=== PATIENT | male | born 1935 | race Caucasian/White ===

== ENCOUNTER 2018-02-25 15:52 | Emergency (ER) | payer OTHER ==
[~2018-02-25] VITALS: Ht 170.2 cm; Wt 85.5 kg
[~2018-02-25 15:52] MED LIST: ADVIN10050 INH; AGG PO; ESOM20CA PO; INSU70IN2 SC; IPRA17AE2 INH; LORA10CA2 PO; METO25TA3 PO; MONT1TAB3 PO; NSNN50 NAE; OXYC-409 PO; SIMV10TA2 PO; THL24/300 PO; XRL10 PO
[2018-02-25 16:01] VITALS: TEMP 36.5; O2SAT 94; Ht 170.2 cm; Wt 85.5 kg
--- NOTE | 2018-02-25 16:24 | EMERGENCY ROOM VISIT NOTE ---
History Report prepared by Malia: Sera Lemos Under the Supervision of: Dr. Artie Britt M.D. First contact with patient: 16:10 Chief Complaint: FALL Stated Complaint: L SHOULDER PAIN History of Present Illness The patient is a 83 year old male who presents to the Emergency Room with complaints of left shoulder pain due to a fall [place] [employer]. He states he fell about 10 feet down a small [place] in the [place]. He reports hitting his head and and is unsure if there was loss of consciousness but notes that he hit his shoulder. Movement of his shoulder is a worsening factor. He denies any neck pain. 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 A total of ten systems were reviewed and were otherwise negative. Family History No pertinent family history Social History Smoking Status: Former Smoker Drug Use: none Housing Status: lives with family Current/Historical Medications Scheduled Dipyridamole/Aspirin (Aggrenox 25-200 mg), 1 CAP PO Q12 Doxycycline Monohydrate (Monodox), 100 MG PO BID Esomeprazole Magnesium (Nexium), 20 MG PO DAILY Fluticasone Prop/Salmeterol (Advair Diskus 100-50 Mcg/Dose), 1 PUFF INH BID Insulin Isophan/Regular (Novolin 70/30), 40 UNITS SC QAM Insulin Isophan/Regular (Novolin 70/30), 25 UNITS SC QPM Ipratropium [place] Hfa (Atrovent Hfa), 2 PUFFS INH QID Loratadine (Claritin), 10 MG PO DAILY Metoprolol Succ (Toprol Xl) (Toprol-Xl), 25 MG PO BID Mometasone Furoate (Nasal) (Nasonex), 2 SPRAYS JOSELINE DAILY Montelukast Sodium (Singulair), 10 MG PO DAILY Oxycodone Hcl (Oxycontin), 10 MG PO Q12 Rivaroxaban (Xarelto), 10 MG PO DAILY@0700 Simvastatin (Zocor), 10 MG PO QPM Theophylline (Will-24), 300 MG PO BID Allergies Coded Allergies: No Known Allergies (Unverified , 12/13/14) Physical Exam Vital Signs Date Time Temp Pulse Resp B/P (MAP) Pulse Ox O2 Delivery O2 Flow Rate FiO2 02/25/18 19:12 65 16 119/80 02/25/18 16:01 36.5 64 20 145/85 94 Room Air Physical Exam Physical Exam GENERAL: He is oriented to person, place, and time. he appears well-developed and well-nourished. he does not appear distressed. ____ HENT: Exam performed. Head: Normocephalic and atraumatic. Right Ear: External ear normal. No mastoid tenderness. Left Ear: External ear normal. No mastoid tenderness. Mouth/Throat: The oropharynx is clear and moist. No trismus in the jaw. No dental abscesses or uvula swelling. No oropharyngeal exudate or tonsillar abscesses. ____ EYES: Conjunctivae and EOM are normal. Pupils are equal, round, and reactive to light. Right eye exhibits no discharge. Left eye exhibits no discharge. No scleral icterus. ____ NECK: Normal range of motion. Neck supple. No JVD present. No spinous process tenderness present. No carotid bruit present. No rigidity. No tracheal deviation and normal range of motion present. No Brudzinski's sign and no Kernig 's sign noted. ____ CV: Normal rate, regular rhythm, normal heart sounds and intact distal pulses. There is no peripheral edema. Palpable radial pulses bue. ____ PULM/CHEST: Effort normal and breath sounds normal. No respiratory distress. No stridor. he has no wheezes. he has no rales. Chest Wall: He exhibits no tenderness. ____ ABD: The abdomen is soft. Bowel sounds are normal. He has no distension. No mass is present. There is no tenderness. There is no rebound, no guarding, no Willis's sign and no tenderness at McBurney's point. Rovsig negative MUSC/SKEL: Normal range of motion. There is no peripheral edema, tenderness or deformity. He has pain with active motion of his left shoulder and pain on palpation of the left shoulder. No pain on palpation of the left humerus or left clavicle. LYMPH: No cervical adenopathy. ____ NEURO: He is alert and oriented to person, place, and time. He has normal strength. No cranial nerve deficit or sensory deficit. Coordination and gait normal. GCS eye subscore is 4. GCS verbal subscore is 5. GCS motor subscore is 6. Cerebellar tests wnl. ____ SKIN: Skin is warm and dry. He is not diaphoretic. ____ PSYCH: He has a normal mood and affect. His behavior is normal. Judgment and thought content normal. ____ Medical Decision & Procedures ER Provider Diagnostic Interpretation: Radiology results as stated below per my review and radiologist interpretation: LEFT SHOULDER 4 VIEWS; LEFT HUMERUS 2 VIEWS CLINICAL HISTORY: Fall. FINDINGS: 4 views of the left shoulder with AP and lateral views of the left humerus are obtained. No prior studies are available for comparison at the time of dictation. The skeletal structures are osteopenic. There is no radiographic evidence of fracture or dislocation in the left shoulder. There is no radiographic evidence of left humeral fracture. Mild productive degenerative change is noted at the acromioclavicular joint. The glenohumeral articulation is preserved. Calcific tendinopathy is suggested. The elbow joint is grossly normal as imaged. The overlying soft tissues are normal in appearance. Interstitial thickening is noted in the partially visualized left lung. The heart appears enlarged. There is atherosclerotic calcification of the left carotid bulb. IMPRESSION: 1. Osteopenia with no radiographic evidence of fracture or dislocation in the left shoulder. 2. There is no radiographic evidence of left humeral fracture. 3. Calcific tendinopathy is suggested in the left shoulder. Electronically signed by: Shamir Hogan M.D. 02/25/2018 6:08 PM Dictated Date/Time: 02/25/2018 6:06 PM SINGLE VIEW PELVIS CLINICAL HISTORY: Fall. FINDINGS: An AP pelvic radiograph is obtained. No prior studies are available for comparison at the time of dictation. The skeletal structures are osteopenic. There is no radiographic evidence of fracture involving the hips or bony pelvis. Mild arthritic change and joint space narrowing is seen in the hips. Sclerotic degenerative change is present in the sacroiliac joints and pubic symphysis. Lumbosacral spondylosis is partially visualized. Numerous phleboliths are seen in the pelvis. Suture material and a surgical clip are present in the right lower quadrant. No bowel obstruction is seen. The overlying soft tissues are within normal limits. IMPRESSION: Osteopenia and degenerative change as above. There is no radiographic evidence of acute fracture involving the hips or bony pelvis. Electronically signed by: Shamir Hogan M.D. 02/25/2018 6:09 PM Dictated Date/Time: 02/25/2018 6:08 PM LEFT SHOULDER 4 VIEWS; LEFT HUMERUS 2 VIEWS CLINICAL HISTORY: Fall. FINDINGS: 4 views of the left shoulder with AP and lateral views of the left humerus are obtained. No prior studies are available for comparison at the time of dictation. The skeletal structures are osteopenic. There is no radiographic evidence of fracture or dislocation in the left shoulder. There is no radiographic evidence of left humeral fracture. Mild productive degenerative change is noted at the acromioclavicular joint. The glenohumeral articulation is preserved. Calcific tendinopathy is suggested. The elbow joint is grossly normal as imaged. The overlying soft tissues are normal in appearance. Interstitial thickening is noted in the partially visualized left lung. The heart appears enlarged. There is atherosclerotic calcification of the left carotid bulb. IMPRESSION: 1. Osteopenia with no radiographic evidence of fracture or dislocation in the left shoulder. 2. There is no radiographic evidence of left humeral fracture. 3. Calcific tendinopathy is suggested in the left shoulder. Electronically signed by: Shamir Hogan M.D. 02/25/2018 6:08 PM Dictated Date/Time: 02/25/2018 6:06 PM HEAD WITHOUT CONTRAST (CT) CLINICAL HISTORY: 83 years-old Male presenting with fall possible LOC. TECHNIQUE: Multidetector CT imaging of the head was performed without the use of intravenous contrast. IV contrast: None. A dose lowering technique was used consistent with the principles of ALARA (as low as reasonably achievable). COMPARISON: None. CT DOSE (mGy.cm): The estimated cumulative dose is 950.77. 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 Proportional ventricular and sulcal prominence, likely age-related parenchymal volume loss. Periventricular and subcortical white matter hypoattenuation, nonspecific but likely indicative of chronic small vessel ischemic change. No mass effect or midline shift. No hemorrhage or acute territorial infarct. No extra-axial fluid collection. Paranasal sinuses and mastoid air cells clear. Calvarium intact. IMPRESSION: 1. Chronic small vessel ischemic change. No acute intracranial abnormality. Electronically signed by: Camilo Rogers M.D. 02/25/2018 4:48 PM Dictated Date/Time: 02/25/2018 4:45 PM CHEST 2 VIEWS ROUTINE CLINICAL HISTORY: 83 years-old Male presenting with fall. TECHNIQUE: PA and lateral views of the chest were obtained. COMPARISON: None. FINDINGS: Atherosclerosis of aortic arch. Cardiac silhouette enlarged. Diffuse reticular and hazy opacities in the left mid to lower lung. Bibasilar reticulation noted. Nodular opacities peripherally in the right mid lung. No large effusion or pneumothorax. Lungs and pleural spaces clear. Osseous structures normal. Upper abdomen normal. IMPRESSION: 1. Findings suspicious for left lung infiltrate superimposed on chronic lung disease. Further evaluation with chest CT to be considered. Electronically signed by: Camilo Rogers M.D. 02/25/2018 6:11 PM Dictated Date/Time: 02/25/2018 6:[address] SCAN OF THE CERVICAL SPINE CLINICAL HISTORY: Fall. COMPARISON STUDY: No priors. TECHNIQUE: CT scan of the cervical spine is performed from the skull base to the upper thoracic spine. Images are reviewed in the axial, sagittal, and coronal planes. IV contrast was not administered for this examination. A dose lowering technique was utilized adhering to the principles of ALARA. CT DOSE: 950.77 mGy.cm FINDINGS: Skeletal structures: The skeletal structures are osteopenic. There is no evidence of fracture or subluxation involving the cervical spine. Vertebral body height is maintained. Minimal anterolisthesis is seen at C6-C7. Alignment is otherwise preserved. There is straightening of the cervical lordosis. The odontoid process and lateral masses are intact. Bulky flowing anterior osteophytes are seen throughout the cervical spine. The atlantoaxial articulation is preserved noting advanced productive degenerative change. The spinous processes appear intact. There is advanced multilevel cervical spondylosis. Uncovertebral and facet arthropathy contribute to neural foraminal stenosis at most levels. A large hemangioma is noted in the body of T2. Intervertebral discs: Advanced disc space narrowing seen at all levels between C3-C4 and C6-C7. Central canal: Large posterior discussed by complex is from C3 -C4 through C6-C7 likely contribute to multilevel acquired compromise of the central canal. Soft tissues: The prevertebral and paraspinous soft tissues are within normal limits. There is atherosclerotic calcification of the carotid bulbs. Calvarium: The visualized calvarium at the skull base appears intact. Brain parenchyma: Partially visualized brain parenchyma the skull base is within normal limits noting age-related involutional change. Sinuses and mastoids: The visualized paranasal sinuses are clear. The mastoid air cells are well pneumatized. Lung apices: Emphysematous change is noted at the lung apices. Partially imaged apical lung parenchyma is otherwise grossly clear. IMPRESSION: 1. There is no evidence of fracture or subluxation involving the cervical spine. 2. Osteopenia with advanced multilevel cervical spondylosis as above. Electronically signed by: Shamir Hogan M.D. 02/25/2018 4:50 PM Dictated Date/Time: 02/25/2018 4:46 PM Procedure Bedside FAST exam performed with ultrasound. Views were obtained in the hepatorenal subxyphoid splenorenal and suprapubic windows. No free fluid in the abdomen. No pericardial tamponade. It was negative. ED Course 1614: The patient was evaluated in room A4. A complete history and physical exam was performed. 1814: I reevaluated the patient at this time. His vitals are stable and he reports his pain is better. Imaging shows no acute traumatic injury. Chest X- ray shows possible pneumonia. Fast exam negative. Patient does report that he was having cough for the last few days, no fevers, no hemoptysis, no difficulty breathing. He was made aware of his chest x-ray findings of acute possible infiltrate, given his symptoms of cough will treat empirically with antibiotics. DISCHARGE - Plan of care discussed with patient and questions answered. The patient was given both verbal and printed discharge instructions. The patient verbalized understanding and ability to comply. The patient is to seek outpatient follow up as noted in the discharge instructions. The patient verbalized understanding and ability to comply. The patient is discharged in stable condition. The patient was instructed to return for worsening symptoms. Medical Decision vitals are stable and he reports his pain is better. Imaging shows no acute traumatic injury. Chest X-ray shows possible pneumonia. Fast exam negative. Patient does report that he was having cough for the last few days, no fevers, no hemoptysis, no difficulty breathing. He was made aware of his chest x-ray findings of acute possible infiltrate, given his symptoms of cough will treat empirically with antibiotics. DISCHARGE - Plan of care discussed with patient and questions answered. The patient was given both verbal and printed discharge instructions. The patient verbalized understanding and ability to comply. The patient is to seek outpatient follow up as noted in the discharge instructions. The patient verbalized understanding and ability to comply. The patient is discharged in stable condition. The patient was instructed to return for worsening symptoms. Medication Reconcilliation Current Medication List: was personally reviewed by me Blood Pressure Screening Patient's blood pressure: Elevated blood pressure Blood pressure disposition: Elevated BP felt to be situational Impression Primary Impression: Fall Additional Impression: Pneumonia Scribe Attestation The scribe's documentation has been prepared under my direction and personally reviewed by me in its entirety. I confirm that the note above accurately reflects all work, treatment, procedures, and medical decision making performed by me. The chart was completed utilizing [employer] Speech voice recognition software. Grammatical errors, random word insertions, pronoun errors, and incomplete sentences are an occasional consequence of this system due to software limitations, ambient noise, and hardware issues. Any formal questions or concerns about the content, text, or information contained within the body of this dictation should be directly addressed to the physician for clarification. Departure Information Dispostion Home / Self-Care Prescriptions Doxycycline Monohydrate (Monodox) 100 Mg Cap 100 MG PO BID for 10 Days, #20 CAP Prov: Artie Britt M.D. 02/25/18 Referrals Luca Lamas M.D. (PCP) Forms HOME CARE DOCUMENTATION FORM, IMPORTANT VISIT INFORMATION Patient Instructions My [facility] Problem Qualifiers Primary Impression: Fall Encounter type: initial encounter Qualified Codes: W19.XXXA - Unspecified fall, initial encounter Additional Impression: Pneumonia Pneumonia type: due to unspecified organism Laterality: unspecified laterality Lung location: unspecified part of lung Qualified Codes: J18.9 - Pneumonia, unspecified organism
--- NOTE | 2018-02-25 16:49 | DIAGNOSTIC IMAGING REPORT ---
HEAD WITHOUT CONTRAST (CT) CLINICAL HISTORY: 83 years-old Male presenting with fall possible LOC. TECHNIQUE: Multidetector CT imaging of the head was performed without the use of intravenous contrast. IV contrast: None. A dose lowering technique was used consistent with the principles of ALARA (as low as reasonably achievable). COMPARISON: None. CT DOSE (mGy.cm): The estimated cumulative dose is 950.77. 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 Proportional ventricular and sulcal prominence, likely age-related parenchymal volume loss. Periventricular and subcortical white matter hypoattenuation, nonspecific but likely indicative of chronic small vessel ischemic change. No mass effect or midline shift. No hemorrhage or acute territorial infarct. No extra-axial fluid collection. Paranasal sinuses and mastoid air cells clear. Calvarium intact. IMPRESSION: 1. Chronic small vessel ischemic change. No acute intracranial abnormality. Electronically signed by: Camilo Rogers M.D. 02/25/2018 4:48 PM Dictated Date/Time: 02/25/2018 4:45 PM
--- NOTE | 2018-02-25 16:52 | DIAGNOSTIC IMAGING REPORT ---
CT SCAN OF THE CERVICAL SPINE CLINICAL HISTORY: Fall. COMPARISON STUDY: No priors. TECHNIQUE: CT scan of the cervical spine is performed from the skull base to the upper thoracic spine. Images are reviewed in the axial, sagittal, and coronal planes. IV contrast was not administered for this examination. A dose lowering technique was utilized adhering to the principles of ALARA. CT DOSE: 950.77 mGy.cm FINDINGS: Skeletal structures: The skeletal structures are osteopenic. There is no evidence of fracture or subluxation involving the cervical spine. Vertebral body height is maintained. Minimal anterolisthesis is seen at C6-C7. Alignment is otherwise preserved. There is straightening of the cervical lordosis. The odontoid process and lateral masses are intact. Bulky flowing anterior osteophytes are seen throughout the cervical spine. The atlantoaxial articulation is preserved noting advanced productive degenerative change. The spinous processes appear intact. There is advanced multilevel cervical spondylosis. Uncovertebral and facet arthropathy contribute to neural foraminal stenosis at most levels. A large hemangioma is noted in the body of T2. Intervertebral discs: Advanced disc space narrowing seen at all levels between C3-C4 and C6-C7. Central canal: Large posterior discussed by complex is from C3 -C4 through C6-C7 likely contribute to multilevel acquired compromise of the central canal. Soft tissues: The prevertebral and paraspinous soft tissues are within normal limits. There is atherosclerotic calcification of the carotid bulbs. Calvarium: The visualized calvarium at the skull base appears intact. Brain parenchyma: Partially visualized brain parenchyma the skull base is within normal limits noting age-related involutional change. Sinuses and mastoids: The visualized paranasal sinuses are clear. The mastoid air cells are well pneumatized. Lung apices: Emphysematous change is noted at the lung apices. Partially imaged apical lung parenchyma is otherwise grossly clear. IMPRESSION: 1. There is no evidence of fracture or subluxation involving the cervical spine. 2. Osteopenia with advanced multilevel cervical spondylosis as above. Electronically signed by: Shamir Hogan M.D. 02/25/2018 4:50 PM Dictated Date/Time: 02/25/2018 4:46 PM
--- NOTE | 2018-02-25 18:09 | DIAGNOSTIC IMAGING REPORT ---
LEFT SHOULDER 4 VIEWS; LEFT HUMERUS 2 VIEWS CLINICAL HISTORY: Fall. FINDINGS: 4 views of the left shoulder with AP and lateral views of the left humerus are obtained. No prior studies are available for comparison at the time of dictation. The skeletal structures are osteopenic. There is no radiographic evidence of fracture or dislocation in the left shoulder. There is no radiographic evidence of left humeral fracture. Mild productive degenerative change is noted at the acromioclavicular joint. The glenohumeral articulation is preserved. Calcific tendinopathy is suggested. The elbow joint is grossly normal as imaged. The overlying soft tissues are normal in appearance. Interstitial thickening is noted in the partially visualized left lung. The heart appears enlarged. There is atherosclerotic calcification of the left carotid bulb. IMPRESSION: 1. Osteopenia with no radiographic evidence of fracture or dislocation in the left shoulder. 2. There is no radiographic evidence of left humeral fracture. 3. Calcific tendinopathy is suggested in the left shoulder. Electronically signed by: Shamir Hogan M.D. 02/25/2018 6:08 PM Dictated Date/Time: 02/25/2018 6:06 PM
--- NOTE | 2018-02-25 18:11 | DIAGNOSTIC IMAGING REPORT ---
SINGLE VIEW PELVIS CLINICAL HISTORY: Fall. FINDINGS: An AP pelvic radiograph is obtained. No prior studies are available for comparison at the time of dictation. The skeletal structures are osteopenic. There is no radiographic evidence of fracture involving the hips or bony pelvis. Mild arthritic change and joint space narrowing is seen in the hips. Sclerotic degenerative change is present in the sacroiliac joints and pubic symphysis. Lumbosacral spondylosis is partially visualized. Numerous phleboliths are seen in the pelvis. Suture material and a surgical clip are present in the right lower quadrant. No bowel obstruction is seen. The overlying soft tissues are within normal limits. IMPRESSION: Osteopenia and degenerative change as above. There is no radiographic evidence of acute fracture involving the hips or bony pelvis. Electronically signed by: Shamir Hogan M.D. 02/25/2018 6:09 PM Dictated Date/Time: 02/25/2018 6:08 PM
--- NOTE | 2018-02-25 18:12 | DIAGNOSTIC IMAGING REPORT ---
CHEST 2 VIEWS ROUTINE CLINICAL HISTORY: 83 years-old Male presenting with fall. TECHNIQUE: PA and lateral views of the chest were obtained. COMPARISON: None. FINDINGS: Atherosclerosis of aortic arch. Cardiac silhouette enlarged. Diffuse reticular and hazy opacities in the left mid to lower lung. Bibasilar reticulation noted. Nodular opacities peripherally in the right mid lung. No large effusion or pneumothorax. Lungs and pleural spaces clear. Osseous structures normal. Upper abdomen normal. IMPRESSION: 1. Findings suspicious for left lung infiltrate superimposed on chronic lung disease. Further evaluation with chest CT to be considered. Electronically signed by: Camilo Rogers M.D. 02/25/2018 6:11 PM Dictated Date/Time: 02/25/2018 6:09 PM
[2018-02-25] MEDS ORDERED: DOXY100C76 PO (18:27)
[2018-02-25 19:12] VITALS: BP 119/80; PULSE 65
== END 2018-02-25 19:16 | disposition home or self-care (01) ==
LOC: EDBD 15:52 → C.EDA 15:53
DX: J18.9 Pneumonia, unspecified organism (principal); W17.81XA Fall down embankment (hill), initial encounter; Y92.821 Forest as the place of occurrence of the external cause; Z87.891 Personal history of nicotine dependence; Z79.4 Long term (current) use of insulin; Z79.899 Other long term (current) drug therapy; Z79.01 Long term (current) use of anticoagulants

== ENCOUNTER 2021-04-08 18:30 | Inpatient (IN) ==
--- NOTE | 2021-04-08 18:46 | Emergency Department Note ---
Impression & Plan Fall, Ambulatory dysfunction, Liver malignancy ED Provider Note NAME: HUBER WHITE AGE: 86 SEX: M : 1935 ARRIVES VIA: Ambulance INFORMANT: Patient, ED PROVIDER(S): Brien Garcia MD Chief Complaint: Fall HPI: Patient does presents status post fall. The patient reportedly had a ground-level fall where he may have struck his back hip and right upper extremity on a stair. The patient does take aspirin and dipyridamole but no other blood thinners. The patient denies any head strike head or neck pain chest left upper extremity or left lower extremity pain. The patient denies any abdominal pain. Patient did not take anything prior to arrival. Patient's incident occurred several hours ago. The patient reportedly had been yelling and his was unable to get him up so she called the ambulance. Patient does have decreased range of motion of the right lower extremity. The patient is a 2 prior knee surgeries. ROS: See HPI for pertinent positives and negatives. A total of 10 systems were r eviewed and otherwise negative. Past medical history: See below Surgical history: See below Social history: See below Physical Exam: GENERAL: Wearing a mask. NAD, non-toxic. Head: Normocephalic atraumatic. EYE EXAM: Normal conjunctiva. PERRL, no anisocoria and EOM's grossly intact w/o pain. NECK: Supple, no nuchal rigidity, no adenopathy, non-tender. No signs of meningismus. No midline C-spine TTP. LUNGS: Clear to auscultation. Normal chest wall mechanics. HEART: NSR, no MRG. ABDOMEN: Abdomen soft, non-tender, normo-active bowel sounds, no masses, no rebound or guarding. BACK: No CVA TTP. SKIN: No rashes and no bruising. UPPER EXTREMITIES: Pain with slight bruising to the ulnar aspect of the distal right forearm. Compartments are soft. No left upper extremity pain. LOWER EXTREMITIES: Grossly normal, no edema. Mild pain to the right buttock and hip area, compartments are soft, no leg length discrepancy. NEURO EXAM: A&O x3, cranial nerves II-XII grossly intact, normal speech, moves all 4 extremities on command w/o issue. Differential diagnoses: Fracture, dislocation, contusion, intra-abdominal, pneumothorax, intrathoracic, intracranial, neurologic, compartment syndrome, r habdomyolysis, as well as other pathologies. Course: Patient was seen and evaluated the bedside. Full history physical exam was performed. EKG turbid by me Normal sinus rhythm, rate of 66, normal intervals, left axis deviation, no obvious ST changes. T WI in lead III. No significant change from comparison EKG October 11, 2014 Imaging Studies: See below Cardiac monitoring: An order was placed for continuous cardiac monitoring. The monitor shows a rate of 75 with sinus rhythm. MDM: Patient was seen due to concern for ground-level mechanical fall. The patient did have CTs of the head neck abdomen pelvis, lumbar spine and x-rays of the right hip and wrist. Patient was given pain medication. Blood work was obtained which was unremarkable. Patient's x-rays and imaging unremarkable. The patient does have concerning finding for the possibility of hepatic malignancy. Patient and family member were aware of this prior. The patient was attempted to be ambulatory but was unable to do so. Given safety concerns I did speak the on-call hospitalist Dr. Jeff. The patient was admitted to the medicine service. Past Med/Surg History Medical History BPH without urinary obstruction CAD (coronary atherosclerotic disease) COPD, severe CVA (cerebral vascular accident) APNIAGUA (dyspnea on exertion) Hypoxia Osteoporosis Wheezing Surgical History No pertinent past surgical history Family History Family/Other No pertinent family history Social History Smoking Status: Former smoker (QUIT 1953; CIGARETTES FOR 1 YEAR, THEN A PIPE) Feels Safe at Home: Yes Allergies Allergies Allergy/AdvReac Type Severity Reaction Status Date / Time No Known Allergies Allergy Unverified 04/08/21 19:33 Home Meds Home Medications Medication Instructions Recorded Confirmed albuterol sulfate 90 mcg/actuation 2 puffs INH Q6H 07/07/19 04/08/21 aerosol inhaler insulin glargine 100 unit/mL (3 50 units SQ DAILY 07/07/19 04/08/21 mL) subcutaneous pen levothyroxine 50 mcg capsule 50 mcg PO DAILY 07/07/19 04/08/21 lisinopril 5 mg tablet 5 mg PO DAILY 07/07/19 04/08/21 montelukast 10 mg tablet 10 mg PO QPM 07/07/19 04/08/21 simvastatin 10 mg tablet 10 mg PO QPM /08/1704/08/21 omeprazole 40 mg capsule,delayed 40 mg PO DAILY 04/30/20 04/08/21 release amoxicillin-pot clavulanate 1 tab PO BID 04/08/21 04/08/21 [Augmentin] aspirin-dipyridamole 1 cap PO BID 04/08/21 04/08/21 fluticasone propionate [Flonase 2 spray INTRANASAL DAILY 04/08/21 04/08/21 Allergy Relief] metoprolol tartrate 25 mg PO BID 04/08/21 04/08/21 Previous Rx's Medication Instructions Recorded nebulizer accessories #1 ea 04/30/20 nebulizer and compressor #1 ea 04/30/20 ipratropium bromide 21 mcg (0.03 2 spray INTRANASAL BID #30 ml 11/08/20 %) nasal spray benzonatate 100 mg capsule 100 mg PO TID PRN #30 cap 12/02/20 guaifenesin 600 mg tablet, 600 mg PO BID #180 tab 12/05/20 extended release 12 hr fluticasone propionate 115 2 inh INH BID #12 g 02/03/21 mcg-salmeterol 21 mcg/actuation HFA inhaler albuterol sulfate 2.5 mg INH Q6H PRN #180 ml 02/18/21 Results & Data (ED) Vital Signs Vital Signs - 24 hr 04/08/21 18:36 04/08/21 18:43 04/08/21 18:44 Temperature 36.2 C L Temperature Source Oral Pulse Rate 75 Pulse Rate from SpO2 Sensor 67 69 Respiratory Rate 18 Respiratory Effort / Characteristics Non-Labored Respiratory Depth Normal Blood Pressure 144/85 H 144/85 H Blood Pressure Mean 104 104 Pulse Oximetry 92 92 92 Oxygen Delivery Method Room Air Oxygen Flow Rate Sepsis Recent Fever Within 48 Hours No Sepsis New/Unexplained Change in Mental Status No Sepsis Action Taken by Nursing No Action Required 04/08/21 18:50 04/08/21 19:00 04/08/21 19:10 Temperature Temperature Source Pulse Rate 69 64 67 Pulse Rate from SpO2 Sensor 63 66 67 Respiratory Rate 18 20 16 Respiratory Effort / Characteristics Respiratory Depth Blood Pressure Blood Pressure Mean Pulse Oximetry 92 91 92 Oxygen Delivery Method Oxygen Flow Rate Sepsis Recent Fever Within 48 Hours Sepsis New/Unexplained Change in Mental Status Sepsis Action Taken by Nursing 04/08/21 19:30 04/08/21 19:38 04/08/21 19:40 Temperature Temperature Source Pulse Rate 71 63 Pulse Rate from SpO2 Sensor 71 64 Respiratory Rate 18 23 Respiratory Effort / Characteristics Respiratory Depth Blood Pressure Blood Pressure Mean Pulse Oximetry 100 100 Oxygen Delivery Method Room Air Oxygen Flow Rate Sepsis Recent Fever Within 48 Hours Sepsis New/Unexplained Change in Mental Status Sepsis Action Taken by Nursing 04/08/21 19:50 04/08/21 20:00 04/08/21 20:10 Temperature Temperature Source Pulse Rate 60 81 Pulse Rate from SpO2 Sensor 65 81 63 Respiratory Rate 20 18 25 H Respiratory Effort / Characteristics Respiratory Depth Blood Pressure Blood Pressure Mean Pulse Oximetry 81 L 100 100 Oxygen Delivery Method Oxygen Flow Rate Sepsis Recent Fever Within 48 Hours Sepsis New/Unexplained Change in Mental Status Sepsis Action Taken by Nursing 04/08/21 20:20 04/08/21 20:30 04/08/21 21:02 Temperature Temperature Source Pulse Rate Pulse Rate from SpO2 Sensor 59 L 61 76 Respiratory Rate 18 17 Respiratory Effort / Characteristics Respiratory Depth Blood Pressure Blood Pressure Mean Pulse Oximetry 100 100 94 Oxygen Delivery Method Oxygen Flow Rate Sepsis Recent Fever Within 48 Hours Sepsis New/Unexplained Change in Mental Status Sepsis Action Taken by Nursing 04/08/21 21:09 04/08/21 21:11 04/08/21 21:20 Temperature Temperature Source Pulse Rate 67 71 74 Pulse Rate from SpO2 Sensor 67 70 73 Respiratory Rate 17 14 21 Respiratory Effort / Characteristics Respiratory Depth Blood Pressure 127/68 Blood Pressure Mean 87 Pulse Oximetry 97 97 96 Oxygen Delivery Method Oxygen Flow Rate Sepsis Recent Fever Within 48 Hours Sepsis New/Unexplained Change in Mental Status Sepsis Action Taken by Nursing 04/08/21 21:30 04/08/21 21:40 04/08/21 21:50 Temperature Temperature Source Pulse Rate 78 75 73 Pulse Rate from SpO2 Sensor 77 76 Respiratory Rate 18 26 H 24 Respiratory Effort / Characteristics Respiratory Depth Blood Pressure Blood Pressure Mean Pulse Oximetry 93 95 Oxygen Delivery Method Oxygen Flow Rate Sepsis Recent Fever Within 48 Hours Sepsis New/Unexplained Change in Mental Status Sepsis Action Taken by Nursing 04/08/21 22:00 04/08/21 22:10 04/08/21 22:18 Temperature Temperature Source Pulse Rate 74 75 75 Pulse Rate from SpO2 Sensor 75 Respiratory Rate 17 17 22 Respiratory Effort / Characteristics Respiratory Depth Blood Pressure 116/58 L Blood Pressure Mean 77 Pulse Oximetry 94 Oxygen Delivery Method Oxygen Flow Rate Sepsis Recent Fever Within 48 Hours Sepsis New/Unexplained Change in Mental Status Sepsis Action Taken by Nursing 04/08/21 22:20 04/08/21 22:30 04/08/21 22:40 Temperature Temperature Source Pulse Rate 80 73 72 Pulse Rate from SpO2 Sensor 79 73 72 Respiratory Rate 24 20 28 H Respiratory Effort / Characteristics Respiratory Depth Blood Pressure 135/60 Blood Pressure Mean 85 Pulse Oximetry 92 97 94 Oxygen Delivery Method Oxygen Flow Rate Sepsis Recent Fever Within 48 Hours Sepsis New/Unexplained Change in Mental Status Sepsis Action Taken by Nursing 04/08/21 23:00 04/08/21 23:15 Temperature Temperature Source Pulse Rate 71 70 Pulse Rate from SpO2 Sensor 71 69 Respiratory Rate 24 20 Respiratory Effort / Characteristics Respiratory Depth Blood Pressure 121/61 Blood Pressure Mean 81 Pulse Oximetry 94 96 Oxygen Delivery Method Nasal Cannula Nasal Cannula Oxygen Flow Rate 2 2 Sepsis Recent Fever Within 48 Hours Sepsis New/Unexplained Change in Mental Status Sepsis Action Taken by [facility] Medications Current Medication List: was personally reviewed by me Laboratory Data Attestation: I reviewed the patient's lab results. Result diagrams: 04/08/21 18:46 04/08/21 18:46 Lab Results 04/08/21 04/08/21 04/08/21 Range/Units 18:46 18:46 18:46 WBC 5.40 (4.8-10.8) K/uL RBC 3.49 L (4.7-6.1) M/uL Hgb 12.2 L (14.0-18.0) g/dL Hct 35.6 L (42-52) % MCV 102.0 H (80-100) fL MCH 35.0 H (25-34) pg MCHC 34.3 (32-36) g/dL RDW Std Deviation 52.0 H (36.4-46.3) fL RDW Coeff of [place] 14.0 (11.5-14.5) % Plt Count 134 (130-400) K/uL MPV 10.7 H (7.4-10.4) fL Immature Gran % (Auto) 2.0 % Neut % (Auto) 75.4 % Lymph % (Auto) 12.6 % [place] % (Auto) 6.7 % Eos % (Auto) 3.1 % Baso % (Auto) 0.2 % Neut # (Auto) 4.07 (1.4-6.5) K/uL Lymph # (Auto) 0.68 L (1.2-3.4) K/uL [place] # (Auto) 0.36 (0.11-0.59) K/uL Eos # (Auto) 0.17 (0-0.5) K/uL Baso # (Auto) 0.01 (0-0.2) K/uL Immature Gran # (Auto) 0.11 H (0.00-0.02) K/uL Absolute Nucleated RBC 0.05 H (0-0) K/uL Nucleated RBC % (auto) 1.0 % PT 10.9 (9.0-12.0) Seconds INR 1.1 (0.9-1.1) Sodium 139 (136-145) mmol/L Potassium 4.4 (3.5-5.1) mmol/L Chloride 110 H (98-107) mmol/L Carbon Dioxide 25 (21-32) mmol/L Anion Gap 4.0 (3-11) BUN 13 (7-18) mg/dl Creatinine 1.26 (0.6-1.4) mg/dl Est Cr Clr Drug Dosing 41.2 ml/min Est GFR ( Amer) 58.6 Est GFR (Non-Af Amer) 50.6 BUN/Creatinine Ratio 10.4 (10-20) Glucose 168 H (70-99) mg/dl Calcium 9.0 (8.5-10.1) mg/dl Specimen Hemolysis COVID-19 Eval Order SARS-CoV-2 (PCR) (Negative) Influenza Type A (PCR) (Neg) Influenza Type B (PCR) (Neg) RSV (RT-PCR) (Neg) 04/08/21 04/08/21 Range/Units 21:50 21:50 WBC (4.8-10.8) K/uL RBC (4.7-6.1) M/uL Hgb (14.0-18.0) g/dL Hct (42-52) % MCV (80-100) fL MCH (25-34) pg MCHC (32-36) g/dL RDW Std Deviation (36.4-46.3) fL RDW Coeff of [place] (11.5-14.5) % Plt Count (130-400) K/uL MPV (7.4-10.4) fL Immature Gran % (Auto) % Neut % (Auto) % Lymph % (Auto) % [place] % (Auto) % Eos % (Auto) % Baso % (Auto) % Neut # (Auto) (1.4-6.5) K/uL Lymph # (Auto) (1.2-3.4) K/uL [place] # (Auto) (0.11-0.59) K/uL Eos # (Auto) (0-0.5) K/uL Baso # (Auto) (0-0.2) K/uL Immature Gran # (Auto) (0.00-0.02) K/uL Absolute Nucleated RBC (0-0) K/uL Nucleated RBC % (auto) % PT (9.0-12.0) Seconds INR (0.9-1.1) Sodium (136-145) mmol/L Potassium (3.5-5.1) mmol/L Chloride (98-107) mmol/L Carbon Dioxide (21-32) mmol/L Anion Gap (3-11) BUN (7-18) mg/dl Creatinine (0.6-1.4) mg/dl Est Cr Clr Drug Dosing ml/min Est GFR ( Amer) Est GFR (Non-Af Amer) BUN/Creatinine Ratio (10-20) Glucose (70-99) mg/dl Calcium (8.5-10.1) mg/dl Specimen Hemolysis COVID-19 Eval Order CovFluRsv at [facility] SARS-CoV-2 (PCR) NEGATIVE (Negative) Influenza Type A (PCR) Negative (Neg) Influenza Type B (PCR) Negative (Neg) RSV (RT-PCR) Negative (Neg) Administered Medications Discontinued Medications Fentanyl Citrate (Fentanyl Citrate 100 Mcg/2 Ml Vial) 25 mcg IV NOW STA Stop: 04/08/21 21:59 Last Admin: 04/08/21 22:09 Dose: 25 mcg Documented by: [id number] Sodium Chloride (Nss) 500 mls @ 999 mls/hr IV .Q31M ADAM Stop: 04/08/21 19:30 Last Infusion: 04/08/21 19:40 Dose: 999 mls/hr Documented by: [id number] Admin: 04/08/21 19:08 Dose: 999 mls/hr Documented by: [id number] Morphine Sulfate (Morphine Sulfate 4 Mg/Ml 1 Ml Carp\Vial) 4 mg IV NOW STA Stop: 04/08/21 18:57 Last Admin: 04/08/21 19:06 Dose: 4 mg Documented by: [id number] Imaging Data Radiologist's Impression: Abdomen/Pelvis CT 04/08/21 18:[address] WITH IV CONTRAST HISTORY: Acute back and abdominal pain status post fall back pain TECHNIQUE: Multiaxial CT images of the abdomen and pelvis were performed following the IV administration of 86 cc of Optiray, A dose lowering technique was utilized adhering to the principles of ALARA. COMPARISON STUDY: CT lumbar spine of same day, chest CT 09/25/2019 FINDINGS: Progressively worsened bilateral reticular opacities with associated thin-walled cysts. Mild associated traction bronchiectasis. Respiratory motion artifact limits the study. Cardiomegaly with coronary artery calcifications. No pneumatosis or pneumoperitoneum. Interval enlargement of the previously described lesion of the right hepatic lobe now measured at 9.0 x 9.4 cm, previously measured at 4.3 cm. This lesion appears to demonstrate enhancement with central areas of cystic change versus necrosis and splays the adjacent hepatic vasculature. This compresses the intrahepatic IVC. Patency of the portal veins. The spleen, moderately atrophic pancreas and right adrenal gland are unremarkable. Mild unchanged thickening of the left adrenal gland. Cholecystectomy with likely postsurgical mild prominence of the extrahepatic biliary tree. Punctate nonobstructing calculus of the interpolar right kidney. Bilateral renal hypodensities suggestive of probable cysts measure up to 8 mm within the infe rior pole right kidney. Indeterminate intermediate density 1.3 cm lesion of the medial superior pole right kidney. No hydronephrosis. Prostamegaly with urinary bladder wall thickening. Calcified plaque of the abdominal aorta. No abdominal aortic aneurysm. Prominent lymph nodes adjacent to the distal esophagus are redemonstrated. Colonic diverticulosis. No acute diverticulitis. Findings suggestive of appendectomy. Subcutaneous stranding of the anterior abdominal wall is suggestive of injection sites. Degenerative changes of the spine, pelvis and hips. No acute fracture identified. IMPRESSION: 1. Heterogeneously enhancing 9.0 x 9.4 cm right hepatic lobe mass contains central cystic/necrotic spaces and causes mass effect with partial effacement of the intrahepatic IVC. This is suggestive of a primary hepatic malignancy. 2. No bowel obstruction or bowel wall thickening. 3. Colonic diverticulosis. 4. Progressively worsened fibrotic interstitial lung disease. 5. Indeterminate intermediate attenuating 1.3 cm lesion of the interpolar right kidney. 6. Nonobstructing right nephrolithiasis. 7. Additional findings as above. ACT 112: Negative or not required by law. The above report was generated using voice recognition software. It may contain grammatical, syntax or spelling errors. Electronically signed by: Denny Morales M.D. 04/08/2021 9:[address] 04/08/21 18:56 CT cervical spine wo con CT DOSE: 1963.97 mGy.cm CLINICAL HISTORY: 86 years-old Male with fall. Acute head and neck injury status post fall COMPARISON: CT cervical spine 02/25/2018 TECHNIQUE: Multiple axial CT images of the cervical spine were obtained without contrast. A dose lowering technique was utilized adhering to the principles of ALARA. FINDINGS: Demineralized appearance the bones. Severe multilevel intervertebral disc space narrowing and spondylitic spurring with degenerative related bony fusion extending from C3-C4 through the C6-C7 levels. 3 mm anterolisthesis C7 on T1 is likely degenerative. Severe multilevel facet arthrosis. T2 vertebral body hemangioma redemonstrated with extension into the posterior elements. No acute fracture or subluxation. Multilevel neural foraminal narrowing. Calcified plaque of the carotid bulbs. Mastoid air cells are clear. Severe degeneration of the sternoclavicular joints. Intralobular septal thickening of the lung apices. No pneumothorax. No prevertebral edema. Air-fluid level of the right sphenoid sinus. IMPRESSION: 1. No acute fracture or subluxation. 2. Severe degenerative changes redemonstrated as above. ACT 112: Negative or not required by law. The above report was generated using voice recognition software. It may contain grammatical, syntax or spelling errors. Electronically signed by: Denny Morales M.D. 04/08/2021 9:[address] 04/08/21 18:56 CT head/brain wo con CLINICAL HISTORY: 86 years-old Male with fall. Acute head and neck injury status post fall TECHNIQUE: Multiple axial CT images of the head were obtained without contrast. A dose lowering technique was utilized adhering to the principles of ALARA. COMPARISON: CT cervical spine of same day, head CT 02/25/2018 FINDINGS: No acute intracranial hemorrhage, midline shift, intracranial mass, hydrocephalus, territorial ischemia or abnormal extra-axial collection. Age- related involutional changes with ex vacuo ventriculomegaly. White matter hypodensities suggestive of chronic microvascular ischemic disease. Cerebral vascular calcifications. Asymmetry of the posterior horns of the lateral ventricles is unchanged. The calvarium is intact. Mastoid air cells are clear. Small air-fluid level of the right sphenoid sinus. Mild mucosal thickening of the ethmoid air cells with mucoperiosteal thickening of the maxillary sinuses. Unremarkable soft tissues prior bilateral lens repair. IMPRESSION: 1. No acute intracranial abnormality. 2. Acute sphenoid sinusitis. ACT 112: Negative or not required by law. The above report was generated using voice recognition software. It may contain grammatical, syntax or spelling errors. Electronically signed by: Denny Morales M.D. 04/08/2021 8:56 PM Hip/Pelvis X-Ray 04/08/21 18:56 XR hip RT 2V w pelvis HISTORY: 86 years-old Male fall, hip pain acute pelvic and right hip pain status post fall COMPARISON: Pelvis radiograph 02/25/2018 TECHNIQUE: AP view the pelvis with 2 views the right hip FINDINGS: Demineralized appearance the bones. 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 No acute fracture, dislocation or avascular necrosis. IMPRESSION: No acute fracture or dislocation. ACT 112: Negative or not required by law. The above report was generated using voice recognition software. It may contain grammatical, syntax or spelling errors. Electronically signed by: Denny Morales M.D. 04/08/2021 8:[address] 04/08/21 18:56 CT lumbar spine w con HISTORY: 86 years-old Male back pain acute low back pain status post fall COMPARISON: CT abdomen and pelvis of same day, chest CT 09/25/2019 TECHNIQUE: Multiple axial CT images of the lumbar spine were obtained without the use of IV contrast. A dose lowering technique was used consistent with the principals of ALARA. FINDINGS: Demineralized appearance of the bones. Multilevel prominent spondylitic spurring with severe facet arthrosis. Posterior annular disc bulging with disc osteophyte complex formations, most pronounced at L4-L5 and L5-S1. Mild vacuum disc phenomena L2-L3, L4-L5 and L5-S1. Chronic appearing L5 superior endplate Schmorl's node. No acute fracture or subluxation. The imaged sacrum and iliac bones appear intact. No paravertebral edema. Evaluation of the central canal and neuroforamina are better assessed by MRI. Partial bony fusion of the SI joints. There is at least moderate central canal stenosis at L4-L5 with a least mild central canal stenosis at L2-L3 and L3-L4. Multilevel neuroforaminal narrowing. IMPRESSION: No acute fracture or subluxation. ACT 112: Negative or not required by law. The above report was generated using voice recognition software. It may contain grammatical, syntax or spelling errors. Electronically signed by: Denny Morales M.D. 04/08/2021 9:14 PM Wrist X-Ray 04/08/21 18:56 XR wrist RT 2V HISTORY: 86 years-old Male pain/bruising s/p fall acute right wrist pain status post fall COMPARISON: None TECHNIQUE: 4 views of the right wrist FINDINGS: Demineralized appearance of the bones. Mild soft tissue swelling of the medial distal forearm and wrist. Chondrocalcinosis of the radiocarpal joint and TFCC. [id number] radiocarpal with moderate first carpometacarpal osteoarthritis. Arterial calcifications. No acute fracture, dislocation or opaque foreign body. IMPRESSION: Soft tissue swelling without acute fracture. ACT 112: Negative or not required by law. The above report was generated using voice recognition software. It may contain grammatical, syntax or spelling errors. Electronically signed by: Denny Morales M.D. 04/08/2021 8:16 PM Discharge Plan Visit Data Chief Complaint: Hip Pain Stated Complaint: FALL, CONTUSION TO R HIP & R WRIST/HAND, WEAKNESS ED Provider: Brien Garcia Discharge Problem: Fall, Ambulatory dysfunction, Liver malignancy Forms Stand Alone Forms: [employer] Prescriptions Prescriptions: No Action ipratropium bromide 0.03 % spray,non-aerosol 2 spray intranasal BID Qty: 30 RF: 2 benzonatate [Tessalon Perles] 100 mg capsule 100 mg PO TID PRN (Reason: cough) Qty: 30 RF: 5 guaifenesin [Mucinex] 600 mg tablet extended release 12hr 600 mg PO BID Qty: 180 RF: 3 Advair HFA 115-21 mcg/actuation HFA aerosol inhaler 2 inh INH BID Qty: 12 RF: 3 albuterol sulfate 2.5 mg /3 mL (0.083 %) solution for nebulization 2.5 mg INH Q6H PRN (Reason: shortness of breath or wheezing) Qty: 180 RF: 5 Basaglar KwikPen U-100 Insulin 100 unit/mL (3 mL) insulin pen 50 units SQ DAILY RF: 0 levothyroxine 50 mcg capsule 50 mcg PO DAILY RF: 0 lisinopril 5 mg tablet 5 mg PO DAILY RF: 0 montelukast [Singulair] 10 mg tablet 10 mg PO QPM RF: 0 albuterol sulfate [Ventolin HFA] 90 mcg/actuation HFA aerosol inhaler 2 puffs INH Q6H RF: 0 simvastatin [Zocor] 10 mg tablet 10 mg PO QPM RF: 0 omeprazole 40 mg capsule,delayed release(DR/EC) 40 mg PO DAILY RF: 0 (DME) nebulizer and compressor Device See Rx Instructions [id number] .MEDSUPPLY Qty: 1 RF: 0 (DME) nebulizer accessories Kit See Rx Instructions .ROUTE .MEDSUPPLY Qty: 1 RF: 0 aspirin-dipyridamole 25-200 mg capsule, ER multiphase 12 hr 1 cap PO BID RF: 0 metoprolol tartrate 25 mg tablet 25 mg PO BID RF: 0 amoxicillin-pot clavulanate [Augmentin] 875-125 mg tablet 1 tab PO BID RF: 0 fluticasone propionate [Flonase Allergy Relief] 50 mcg/actuation [place],Suspension 2 spray INTRANASAL DAILY RF: 0 Discharge Problem: Fall Qualifiers: Encounter type: initial encounter Qualified Code(s): W19.XXXA - Unspecified fall, initial encounter Liver malignancy Qualifiers: Liver malignancy type: unspecified liver malignancy Qualified Code(s): C22.9 - Malignant neoplasm of liver, not specified as primary or secondary
[2021-04-08] MEDS ORDERED: MoRPHine SULFATE 4 MG/ML 1 ML CARP\\VIAL IV STA (18:56)
[2021-04-08] MEDS ORDERED: SODIUM CHLORIDE 0.9% 500 ML IV SCH (19:00)
[2021-04-08 19:09] LABS: Basophils # (auto) 0.01 K/uL (0-0.2); Basophils % (auto) 0.2 %; Eosinophils # (auto) 0.17 K/uL (0-0.5); Eosinophils % (auto) 3.1 %; Hematocrit (blood only) 35.6 % (42-52); Hemoglobin 12.2 g/dL (14.0-18.0); Immature Granulocytes # (auto) 0.11 K/uL (0.00-0.02); Lymphocytes # (auto) 0.68 K/uL (1.2-3.4); Lymphocytes % (auto) 12.6 %; Mean Corpuscular Hgb Conc 34.3 g/dL (32-36); Mean Platelet Volume 10.7 fL (7.4-10.4); Monocytes # (auto) 0.36 K/uL (0.11-0.59); Monocytes % (auto) 6.7 %; Neutrophils # (auto) 4.07 K/uL (1.4-6.5); Neutrophils % (auto) 75.4 %; Nucleated RBC # (auto) 0.05 K/uL (0-0); Platelet Count 134 K/uL (130-400); Red Blood Count 3.49 M/uL (4.7-6.1)
[2021-04-08 19:13] LABS: INR 1.1 (0.9-1.1); Prothrombin Time 10.9 Seconds (9.0-12.0)
[2021-04-08 19:20] LABS: BUN Creatinine Ratio 10.4 (10-20); Creatinine Clr Calc Pharmacy 41.2 ml/min; Est GFR (African American) 58.6; Est GFR (Non-African American) 50.6; Potassium 4.4 mmol/L (3.5-5.1)
--- NOTE | 2021-04-08 20:16 | XRay Report ---
XR hip RT 2V w pelvis HISTORY: 86 years-old Male fall, hip pain acute pelvic and right hip pain status post fall COMPARISON: Pelvis radiograph 02/25/2018 TECHNIQUE: AP view the pelvis with 2 views the right hip FINDINGS: Demineralized appearance the bones. 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 No acute fracture, dislocation or avascular necrosis. IMPRESSION: No acute fracture or dislocation. ACT 112: Negative or not required by law. The above report was generated using voice recognition software. It may contain grammatical, syntax o r spelling errors. Electronically signed by: Denny Morales M.D. 04/08/2021 8:15 PM
--- NOTE | 2021-04-08 20:17 | XRay Report ---
XR wrist RT 2V HISTORY: 86 years-old Male pain/bruising s/p fall acute right wrist pain status post fall COMPARISON: None TECHNIQUE: 4 views of the right wrist FINDINGS: Demineralized appearance of the bones. Mild soft tissue swelling of the medial distal forearm and wri st. Chondrocalcinosis of the radiocarpal joint and TFCC. [id number] radiocarpal with moderate f irst carpometacarpal osteoarthritis. Arterial calcifications. No acute fracture, dislocation or opaqu e foreign body. IMPRESSION: Soft tissue swelling without acute fracture. ACT 112: Negative or not required by law. The above report was generated using voice recognition software. It may contain grammatical, syntax o r spelling errors. Electronically signed by: Denny Morales M.D. 04/08/2021 8:16 PM
--- NOTE | 2021-04-08 20:57 | CT Scan Report ---
CT head/brain wo con CLINICAL HISTORY: 86 years-old Male with fall. Acute head and neck injury status post fall TECHNIQUE: Multiple axial CT images of the head were obtained without contrast. A dose lowering tech nique was utilized adhering to the principles of ALARA. COMPARISON: CT cervical spine of same day, head CT 02/25/2018 FINDINGS: No acute intracranial hemorrhage, midline shift, intracranial mass, hydrocephalus, territorial ischem ia or abnormal extra-axial collection. Age-related involutional changes with ex vacuo ventriculomegal y. White matter hypodensities suggestive of chronic microvascular ischemic disease. Cerebral vascular calcifications. Asymmetry of the posterior horns of the lateral ventricles is unchanged. The calvarium is intact. Mastoid air cells are clear. Small air-fluid level of the right sphenoid si nus. Mild mucosal thickening of the ethmoid air cells with mucoperiosteal thickening of the maxillary sinuses. Unremarkable soft tissues prior bilateral lens repair. IMPRESSION: 1. No acute intracranial abnormality. 2. Acute sphenoid sinusitis. ACT 112: Negative or not required by law. The above report was generated using voice recognition software. It may contain grammatical, syntax o r spelling errors. Electronically signed by: Denny Morales M.D. 04/08/2021 8:56 PM
--- NOTE | 2021-04-08 21:01 | CT Scan Report ---
CT cervical spine wo con CT DOSE: 1963.97 mGy.cm CLINICAL HISTORY: 86 years-old Male with fall. Acute head and neck injury status post fall COMPARISON: CT cervical spine 02/25/2018 TECHNIQUE: Multiple axial CT images of the cervical spine were obtained without contrast. A dose low ering technique was utilized adhering to the principles of ALARA. FINDINGS: Demineralized appearance the bones. Severe multilevel intervertebral disc space narrowing and spondyl itic spurring with degenerative related bony fusion extending from C3-C4 through the C6-C7 levels. 3 mm anterolisthesis C7 on T1 is likely degenerative. Severe multilevel facet arthrosis. T2 vertebral b alvin hemangioma redemonstrated with extension into the posterior elements. No acute fracture or sublux ation. Multilevel neural foraminal narrowing. Calcified plaque of the carotid bulbs. Mastoid air cell s are clear. Severe degeneration of the sternoclavicular joints. Intralobular septal thickening of the lung apices. No pneumothorax. No prevertebral edema. Air-fluid level of the right sphenoid sinus. IMPRESSION: 1. No acute fracture or subluxation. 2. Severe degenerative changes redemonstrated as above. ACT 112: Negative or not required by law. The above report was generated using voice recognition software. It may contain grammatical, syntax o r spelling errors. Electronically signed by: Denny Morales M.D. 04/08/2021 9:00 PM
--- NOTE | 2021-04-08 21:16 | CT Scan Report ---
ABDOMEN AND PELVIS CT WITH IV CONTRAST HISTORY: Acute back and abdominal pain status post fall back pain TECHNIQUE: Multiaxial CT images of the abdomen and pelvis were performed following the IV administrat ion of 86 cc of Optiray, A dose lowering technique was utilized adhering to the principles of ALARA. COMPARISON STUDY: CT lumbar spine of same day, chest CT 09/25/2019 FINDINGS: Progressively worsened bilateral reticular opacities with associated thin-walled cysts. Mil d associated traction bronchiectasis. Respiratory motion artifact limits the study. Cardiomegaly with coronary artery calcifications. No pneumatosis or pneumoperitoneum. Interval enlargement of the previously described lesion of the right hepatic lobe now measured at 9.0 x 9.4 cm, previously measured at 4.3 cm. This lesion appears to demonstrate enhancement with central areas of cystic change versus necrosis and splays the adjacent hepatic vasculature. This compresses the intrahepatic IVC. Patency of the portal veins. The spleen, moderately atrophic pancreas and right adrenal gland are unremarkable. Mild unchanged thickening of the left adrenal gland. Cholecystectomy with likely postsurgical mild prominence of the extrahepatic biliary tree. Punctate nonobstructing calculus of the interpolar right kidney. Bilateral renal hypodensities sugges tive of probable cysts measure up to 8 mm within the inferior pole right kidney. Indeterminate interm ediate density 1.3 cm lesion of the medial superior pole right kidney. No hydronephrosis. Prostamegal y with urinary bladder wall thickening. Calcified plaque of the abdominal aorta. No abdominal aortic aneurysm. Prominent lymph nodes adjacent to the distal esophagus are redemonstrated. Colonic divertic ulosis. No acute diverticulitis. Findings suggestive of appendectomy. Subcutaneous stranding of the a nterior abdominal wall is suggestive of injection sites. Degenerative changes of the spine, pelvis an d hips. No acute fracture identified. IMPRESSION: 1. Heterogeneously enhancing 9.0 x 9.4 cm right hepatic lobe mass contains central cystic/necrotic sp aces and causes mass effect with partial effacement of the intrahepatic IVC. This is suggestive of a primary hepatic malignancy. 2. No bowel obstruction or bowel wall thickening. 3. Colonic diverticulosis. 4. Progressively worsened fibrotic interstitial lung disease. 5. Indeterminate intermediate attenuating 1.3 cm lesion of the interpolar right kidney. 6. Nonobstructing right nephrolithiasis. 7. Additional findings as above. ACT 112: Negative or not required by law. The above report was generated using voice recognition software. It may contain grammatical, syntax o r spelling errors. Electronically signed by: Denny Morales M.D. 04/08/2021 9:14 PM
--- NOTE | 2021-04-08 21:16 | CT Scan Report ---
CT lumbar spine w con HISTORY: 86 years-old Male back pain acute low back pain status post fall COMPARISON: CT abdomen and pelvis of same day, chest CT 09/25/2019 TECHNIQUE: Multiple axial CT images of the lumbar spine were obtained without the use of IV contrast. A dose lowering technique was used consistent with the principals of ARLENE. FINDINGS: Demineralized appearance of the bones. Multilevel prominent spondylitic spurring with severe facet ar throsis. Posterior annular disc bulging with disc osteophyte complex formations, most pronounced at L 4-L5 and L5-S1. Mild vacuum disc phenomena L2-L3, L4-L5 and L5-S1. Chronic appearing L5 superior endp late Schmorl's node. No acute fracture or subluxation. The imaged sacrum and iliac bones appear intac t. No paravertebral edema. Evaluation of the central canal and neuroforamina are better assessed by M RI. Partial bony fusion of the SI joints. There is at least moderate central canal stenosis at L4-L5 with a least mild central canal stenosis at L2-L3 and L3-L4. Multilevel neuroforaminal narrowing. IMPRESSION: No acute fracture or subluxation. ACT 112: Negative or not required by law. The above report was generated using voice recognition software. It may contain grammatical, syntax o r spelling errors. Electronically signed by: Denny Morales M.D. 04/08/2021 9:14 PM
[2021-04-08] MEDS ORDERED: fentaNYL citrate 100 MCG/2 ML VIAL IV STA (21:58)
[2021-04-08 22:59] LABS: Influenza A virus by PCR Negative (Neg); Influenza B virus by PCR Negative (Neg); RSV by PCR Negative (Neg); SARS CoV2 RNA(COVID-19) InHosp NEGATIVE (Negative)
[2021-04-09] MEDS ORDERED: ALBUTEROL 0.083% NEBU SOLN 3 ML VIAL INH PRN (00:57)
[2021-04-09] MEDS ORDERED: POLYETHYLENE (MIRALAX) 17 GM PACK PO PRN (00:57)
[2021-04-09] MEDS ORDERED: BENZONATATE 100 MG CAPSULE PO PRN (00:57)
[2021-04-09] MEDS ORDERED: SODIUM CHLORIDE 0.9% 1000ML 1,000 ML IV SCH (00:57)
[2021-04-09] MEDS ORDERED: GLUCOSE 40% GEL 15 GM TUBE PO PRN (01:45)
[2021-04-09] MEDS ORDERED: GLUCOSE 10 TAB/TUBE PO PRN (01:45)
[2021-04-09] MEDS ORDERED: DEXTROSE 50% 50 ML SYRINGE IV PRN (01:45)
[2021-04-09] MEDS ORDERED: GLUCAGON FOR INJ 1 MG VIAL SQ PRN (01:45)
[2021-04-09] MEDS ORDERED: CARBOHYDRATES FOR HYPOGLYCEMIA PO PRN (01:45)
--- NOTE | 2021-04-09 04:41 | History and Physical Report ---
DATE OF ADMISSION: 04/08/2021 CHIEF COMPLAINT: Fall. HISTORY OF PRESENT ILLNESS: This is an 86-year-old male with past medical history significant for diabetes, chronic kidney disease stage III, hypothyroidism, history of COPD, history of pulmonary fibrosis, chronic sinusitis, history of CAD, history of GERD, history of BPH, history of osteoporosis, history of CVA, who lives with his , presents with fall as per the . The patient currently received fentanyl and morphine in the ER and is somewhat confused, oriented to name, but is a poor historian, could not give any history. As per the , he is not confused at home, he walks with a walker. He was in the porch and slipped and fell on the right side. In the ER, he complained of hip pain. Imaging studies were done, which showed 9 x 9.4 cm right hepatic lobe lesion, which increased from 4.3 cm from previous. As per the , the patient is otherwise doing okay. No complaints of any other pain. No cough, no fever, no chills, no nausea, no diarrhea. Normal bowel and bladder movements. Could not get a complete review of systems at this time. It looks like he was started on Augmentin recently by his ENT for chronic sinusitis on 03/24/2021 for 3 weeks course. Currently, his hemodynamics are okay. ALLERGIES: No known drug allergies. PAST MEDICAL HISTORY: As mentioned above. PAST SURGICAL HISTORY: No past surgical history on file. SOCIAL HISTORY: . Quit smoking when 19 years old. No alcohol use, no drug use. FAMILY HISTORY: No family history on file. MEDICATIONS: The patient is on albuterol 2.5 mg inhalation q. 6 hours p.r.n., albuterol nebulization q. 6 hours p.r.n., Augmentin 1 tablet p.o. b.i.d., Aggrenox 1 tablet p.o. b.i.d., benzonatate 100 mg p.o. t.i.d. p.r.n., fluticasone/salmeterol 2 puffs inhalation b.i.d., Flonase 2 sprays intranasal daily, guaifenesin 600 mg p.o. b.i.d., insulin Glargine 15 units subcutaneous daily, ipratropium bromide 21 mcg nasal spray b.i.d., levothyroxine 50 mcg p.o. daily, lisinopril 5 mg p.o. daily, metoprolol tartrate 25 mg p.o. b.i.d., montelukast 10 mg p.o. p.m., omeprazole 40 mg p.o. daily, simvastatin 10 mg p.o. p.m. REVIEW OF SYSTEMS: As per HPI. Could not get complete review of systems as the patient is confused. PHYSICAL EXAMINATION: GENERAL: The patient is alert and awake, oriented to name only, somewhat confused. VITAL SIGNS: Temperature 36.2, pulse 70, respiratory rate 20, blood pressure 121/61, oxygen 96% on 2 liters. HEENT: Pupils equal, round, and reactive to light. Oral mucosa moist. NECK: No JVD. No neck masses. CARDIOVASCULAR: S1, S2 heard, regular rate and rhythm, no murmur, no gallop. RESPIRATORY SYSTEM: Normal AP diameter. No accessory muscle use. No wheezing, no crackles. ABDOMEN: Soft, bowel sounds present, nontender. No distention. CENTRAL NERVOUS SYSTEM: Alert and awake, oriented to name only, confused. Moves extremities. Speaks in a low voice and mumbles. EXTREMITIES: Right wrist region has a bruise. No edema, no erythema seen. LABORATORY DATA: WBC 5.4, hemoglobin 12.2, hematocrit 35.6, platelets 134. PT 10.9, INR 1.1. Sodium 139, potassium 4.4, chloride 110, bicarbonate 25, BUN 13, creatinine 1.2, serum glucose 168, calcium 9. SARS-CoV-2 PCR negative. Influenza A and B PCR negative. RSV PCR negative. IMAGING DATA: Wrist x-ray, soft tissue swelling without acute fracture on the right wrist. Lumbar spine CT, no acute fracture or subluxation. Hip and pelvis x-ray, no acute fracture or dislocation. CT of the head, no acute intracranial abnormality, acute sphenoid sinusitis. Cervical spine CT, no acute fracture or subluxation. Severe degenerative changes demonstrated as above. CT abdomen and pelvis, heterogeneously enhancing 9 x 9.4 cm right hepatic lobe mass containing central cystic necrotic spaces and causes mass effect with partial effacement of the intrahepatic IVC. This is suggestive of primary hepatic malignancy. No bowel obstruction or bowel wall thickening, colonic diverticulosis, progressive worsening fibrotic interstitial lung disease. Indeterminate 1.3 cm lesion of the interpolar right kidney, nonobstructive right nephrolithiasis. EKG: Normal sinus rhythm at a rate of 66, no significant change was found. ASSESSMENT AND PLAN: This is an 86-year-old male who presents with fall at home. 1. Fall: Generally ambulates with a walker, comes in with right hip pain. He received pain medication in the ER. PT and OT when stable. 2. Liver lesion: The CT of abdomen and pelvis is showing 9 x 9.4 cm right hepatic lobe lesion, which increased from 4.3 cm with some cystic changes with necrosis and mass effect on intrahepatic IVC. Will get a liver ultrasound. Consult GI in the a.m. for further recommendations. 3. Right kidney lesion: We will get a renal ultrasound. 4. History of chronic kidney disease stage III: Currently creatinine of 1.2. We will follow the labs. 5. History of diabetes: We will cut back on home glargine Lantus from [address] insulin sliding scale. Follow the blood sugar. Follow the sliding scale. Follow the HbA1c levels. 6. History of cerebrovascular accident: Continue his Aggrenox and statin. 7. Gastroesophageal reflux disease: Continue omeprazole. 8. Hypertension: Continue metoprolol and lisinopril. Will monitor the blood pressure. 9. History of chronic obstructive pulmonary disease: Continue his home inhalers and nebs p.r.n. 10. Hypothyroidism: Continue Synthroid. 11. Chronic sinusitis: Currently on Augmentin three weeks course started on 03/24/2021, complete the course. Follow with ENT. 12. Deep venous thrombosis prophylaxis: We will place on heparin subQ. DISPOSITION: Closely monitor in the medical floor. Level 1 full code as per my discussion with the . PT and OT prior to discharge. Social service to help with discharge planning. MARQUISE
[2021-04-09] MEDS: HEPARIN SOD 5,000 UNIT/0.5 ML VIAL SQ SCH ×3 (05:26→21:24)
[2021-04-09] MEDS: LEVOTHYROXINE SODIUM 50 MCG TABLET PO SCH (05:26)
[2021-04-09 06:29] LABS: Basophils # (auto) 0.01 K/uL (0-0.2); Basophils % (auto) 0.2 %; Eosinophils # (auto) 0.27 K/uL (0-0.5); Hematocrit (blood only) 34.4 % (42-52); Hemoglobin 11.8 g/dL (14.0-18.0); Immature Granulocytes # (auto) 0.09 K/uL (0.00-0.02); Immature Granulocytes % (auto) 1.7 %; Lymphocytes # (auto) 0.72 K/uL (1.2-3.4); Lymphocytes % (auto) 13.4 %; Mean Corpuscular Hemoglobin 34.1 pg (25-34); Mean Corpuscular Hgb Conc 34.3 g/dL (32-36); Mean Corpuscular Volume 99.4 fL (80-100); Mean Platelet Volume 10.5 fL (7.4-10.4); Monocytes # (auto) 0.31 K/uL (0.11-0.59); Monocytes % (auto) 5.8 %; Neutrophils # (auto) 3.98 K/uL (1.4-6.5); Neutrophils % (auto) 73.9 %; Platelet Count 118 K/uL (130-400); Red Blood Count 3.46 M/uL (4.7-6.1); White Blood Count 5.38 K/uL (4.8-10.8)
[2021-04-09 07:02] LABS: BUN Creatinine Ratio 11.4 (10-20); Calcium 8.3 mg/dl (8.5-10.1); Creatinine Clr Calc Pharmacy 51.2 ml/min; Est GFR (African American) 76.6; Est GFR (Non-African American) 66.1; Magnesium 1.8 mg/dl (1.8-2.4); Potassium 4.3 mmol/L (3.5-5.1)
[2021-04-09] MEDS: ALBUTEROL HFA 8 GM INHALER INH SCH ×3 (07:25→19:45)
[2021-04-09 07:33] LABS: Estimated Average Glucose 143 mg/dl; Hemoglobin A1C 6.6 % (4.5-5.6)
[2021-04-09] MEDS ORDERED: INSULIN GLARGINE SOLOSTAR 100 UNITS/ML 3 ML PEN SC SCH (09:00)
--- NOTE | 2021-04-09 09:13 | Gastrointestinal Consultation ---
Date of Consultation April 09, 2021 Assessment & Plan (1) Liver malignancy: 86 year old male admitted with fall - gi asked to evaluate as CT imaging showed liver lesion, concerning for a malignancy. There is a heterogeneously enhancing 9.0 x 9.4 cm right hepatic lobe mass contains central cystic/necrotic spaces which causes mass effect with partial effacement of the intrahepatic IVC. Discussed at bedside with patient and with on the phone who did not wish to proceed with any biopsy or treatment if appropriate. I encouraged them to contact us with any questions or concerns and at that time if they wish to proceed to consider IR guided biopsy. Will sign off. Please recall as needed. Thank you for allowing us to participate in the care of this patient. Please call with any acute changes, questions or concerns. Please see addendum below with additional recommendation from my supervising physician. Supervising Physician Co-Signing Physician Notes Attending attestation I have seen, examined this patient, and agree with the findings and above by our mid-level provider JOB Clayton, with the following additions: -Patient with large liver lesion known since 2019. During that time he had follow-up with his PCP after MRI suggested malignant area of the liver, patient as well as family decided not to pursue any further treatment. He is admitted today cannot provide history, however family namely who makes decisions has decided to have no further work-up. If change their mind would suggest interventional radiology guided biopsy. Please call with questions we will sign off. History of Present Illness Reason for Consultation: liver lesion Requesting Physician: Federico Attending Physician: Dee Caballero MD History of Present Illness 86 year old male wit history of CKD-3, DM, COPD, CAD, GERD, BPH, known liver lesion admitted through the ED w/ fall - GI asked to evaluate for liver lesion. Pt was seen and evaluated, chart reviewed. Pt was on phone during constulation who aided in history due to some mental status changes. Known liver lesion. About 2/3 years ago it was recommended he undergo bx but thye had deferred at that time. They still do not wish to proceed with any formal testing. denies any concerning GI s/s at home. No nausea/vomiting. No black or bloody stools. Today he reports back pain and hip pain. CTAP: Heterogeneously enhancing 9.0 x 9.4 cm right hepatic lobe mass contains central cystic/necrotic spaces and causes mass effect with partial effacement of the intrahepatic IVC. This is suggestive of a primary hepatic malignancy. No bowel obstruction or bowel wall thickening. Colonic diverticulosis. Progressively worsened fibrotic interstitial lung disease. Indeterminate intermediate attenuating 1.3 cm lesion of the interpolar right kidney. Nonobstructing right nephrolithiasis. Allergies Allergy/AdvReac Type Severity Reaction Status Date / Time No Known Allergies Allergy Unverified 04/08/21 19:33 Home Medications Medication Instructions Recorded Confirmed Type albuterol sulfate 90 mcg/actuation 2 puffs INH Q6H 07/07/19 04/08/21 History aerosol inhaler insulin glargine 100 unit/mL (3 50 units SQ DAILY 07/07/19 04/08/21 History mL) subcutaneous pen levothyroxine 50 mcg capsule 50 mcg PO DAILY 07/07/19 04/08/21 History lisinopril 5 mg tablet 5 mg PO DAILY 07/07/19 04/08/21 History montelukast 10 mg tablet 10 mg PO QPM 07/07/19 04/08/21 History simvastatin 10 mg tablet 10 mg PO QPM 07/07/19 04/08/21 History nebulizer accessories #1 ea 04/30/20 11/07/20 Rx nebulizer and compressor #1 ea 04/30/20 11/07/20 Rx omeprazole 40 mg capsule,delayed 40 mg PO DAILY 04/30/20 04/08/21 History release ipratropium bromide 21 mcg (0.03 2 spray INTRANASAL BID #30 ml 11/08/20 04/08/21 Rx %) nasal spray benzonatate 100 mg capsule 100 mg PO TID PRN #30 cap 12/02/20 04/08/21 Rx guaifenesin 600 mg tablet, 600 mg PO BID #180 tab 12/05/20 04/08/21 Rx extended release 12 hr fluticasone propionate 115 2 inh INH BID #12 g 02/03/21 04/08/21 Rx mcg-salmeterol 21 mcg/actuation HFA inhaler albuterol sulfate 2.5 mg INH Q6H PRN #180 ml 02/18/21 04/08/21 Rx amoxicillin-pot clavulanate 1 tab PO BID 04/08/21 04/08/21 History [Augmentin] aspirin-dipyridamole 1 cap PO BID 04/08/21 04/08/21 History fluticasone propionate [Flonase 2 spray INTRANASAL DAILY 04/08/21 04/08/21 History Allergy Relief] metoprolol tartrate 25 mg PO BID 04/08/21 04/08/21 History Patient History Medical History BPH without urinary obstruction CAD (coronary atherosclerotic disease) COPD, severe CVA (cerebral vascular accident) PANIAGUA (dyspnea on exertion) Hypoxia Osteoporosis Wheezing Surgical History No pertinent past surgical history Family History Family/Other No pertinent family history Social History Smoking Status: Unknown if ever smoked Preferred Language: Amharic 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 Required: No Beliefs That Will Affect Care: None Feels Safe at Home: Yes Review of Systems Review of Systems: All systems reviewed & are unremarkable except as noted in HPI & below Gastrointestinal: no abdominal pain Physical Exam Constitutional: well nourished and + ill appearing (chronic); no acute distress Neck: trachea midline Respiratory: normal respiratory effort, lungs clear to auscultation Cardiovascular: RRR, no murmur, no edema Gastrointestinal (Abdomen): normal bowel sounds, soft, nontender, no hepatosplenomegaly Results & Data ([facility]) Vital Signs (Past 12 Hours) Vital Signs Temp Pulse Pulse Resp BP BP Pulse Ox 04/09/21 07:28 37.1 C 64 18 148/81 H 96 04/09/21 07:27 55 L 20 97 04/09/21 00:59 36.7 C 59 L 18 156/70 H 92 04/09/21 00:15 65 20 93 04/09/21 00:00 62 17 124/63 93 04/08/21 23:30 77 19 141/88 H 92 04/08/21 23:15 70 20 96 04/08/21 23:00 71 24 121/61 94 04/08/21 22:40 72 28 H 94 04/08/21 22:30 73 20 135/60 97 04/08/21 22:20 80 24 92 04/08/21 22:18 75 22 116/58 L 04/08/21 22:10 75 17 94 04/08/21 22:00 74 17 04/08/21 21:50 73 24 04/08/21 21:40 75 26 H 95 04/08/21 21:30 78 18 93 04/08/21 21:20 74 21 96 04/08/21 21:11 71 14 97 Laboratory Results 04/09/21 04/09/21 04/09/21 Range/Units 08:01 06:21 06:21 WBC (4.8-10.8) K/uL RBC (4.7-6.1) M/uL Hgb (14.0-18.0) g/dL Hct (42-52) % MCV (80-100) fL MCH (25-34) pg MCHC (32-36) g/dL RDW Std Deviation (36.4-46.3) fL RDW Coeff of [place] (11.5-14.5) % Plt Count (130-400) K/uL MPV (7.4-10.4) fL Immature Gran % (Auto) % Neut % (Auto) % Lymph % (Auto) % Steele % (Auto) % Eos % (Auto) % Baso % (Auto) % Neut # (Auto) (1.4-6.5) K/uL Lymph # (Auto) (1.2-3.4) K/uL Steele # (Auto) (0.11-0.59) K/uL Eos # (Auto) (0-0.5) K/uL Baso # (Auto) (0-0.2) K/uL Immature Gran # (Auto) (0.00-0.02) K/uL Absolute Nucleated RBC (0-0) K/uL Nucleated RBC % (auto) % PT (9.0-12.0) Seconds INR (0.9-1.1) Sodium 140 (136-145) mmol/L Potassium 4.3 (3.5-5.1) mmol/L Chloride 110 H (98-107) mmol/L Carbon Dioxide 25 (21-32) mmol/L Anion Gap 5.0 (3-11) BUN 11 (7-18) mg/dl Creatinine 1.01 (0.6-1.4) mg/dl Est Cr Clr Drug Dosing 51.2 ml/min Est GFR ( Amer) 76.6 Est GFR (Non-Af Amer) 66.1 BUN/Creatinine Ratio 11.4 (10-20) Glucose 139 H (70-99) mg/dl POC Glucose 137 H (70-99) mg/dl Estimat Average Glucose 143 mg/dl Hemoglobin A1c 6.6 H (4.5-5.6) % Calcium 8.3 L (8.5-10.1) mg/dl Magnesium 1.8 (1.8-2.4) mg/dl Specimen Hemolysis COVID-19 Eval Order SARS-CoV-2 (PCR) (Negative) Influenza Type A (PCR) (Neg) Influenza Type B (PCR) (Neg) RSV (RT-PCR) (Neg) 04/09/21 04/08/21 04/08/21 Range/Units 06:21 21:50 21:50 WBC 5.38 (4.8-10.8) K/uL RBC 3.46 L (4.7-6.1) M/uL Hgb 11.8 L (14.0-18.0) g/dL Hct 34.4 L (42-52) % MCV 99.4 (80-100) fL MCH 34.1 H (25-34) pg MCHC 34.3 (32-36) g/dL RDW Std Deviation 50.0 H (36.4-46.3) fL RDW Coeff of [place] 14.0 (11.5-14.5) % Plt Count 118 L (130-400) K/uL MPV 10.5 H (7.4-10.4) fL Immature Gran % (Auto) 1.7 % Neut % (Auto) 73.9 % Lymph % (Auto) 13.4 % Steele % (Auto) 5.8 % Eos % (Auto) 5.0 % Baso % (Auto) 0.2 % Neut # (Auto) 3.98 (1.4-6.5) K/uL Lymph # (Auto) 0.72 L (1.2-3.4) K/uL Steele # (Auto) 0.31 (0.11-0.59) K/uL Eos # (Auto) 0.27 (0-0.5) K/uL Baso # (Auto) 0.01 (0-0.2) K/uL Immature Gran # (Auto) 0.09 H (0.00-0.02) K/uL Absolute Nucleated RBC (0-0) K/uL Nucleated RBC % (auto) % PT (9.0-12.0) Seconds INR (0.9-1.1) Sodium (136-145) mmol/L Potassium (3.5-5.1) mmol/L Chloride (98-107) mmol/L Carbon Dioxide (21-32) mmol/L Anion Gap (3-11) BUN (7-18) mg/dl Creatinine (0.6-1.4) mg/dl Est Cr Clr Drug Dosing ml/min Est GFR ( Amer) Est GFR (Non-Af Amer) BUN/Creatinine Ratio (10-20) Glucose (70-99) mg/dl POC Glucose (70-99) mg/dl Estimat Average Glucose mg/dl Hemoglobin A1c (4.5-5.6) % Calcium (8.5-10.1) mg/dl Magnesium (1.8-2.4) mg/dl Specimen Hemolysis COVID-19 Eval Order CovFluRsv at [facility] SARS-CoV-2 (PCR) NEGATIVE (Negative) Influenza Type A (PCR) Negative (Neg) Influenza Type B (PCR) Negative (Neg) RSV (RT-PCR) Negative (Neg) 04/08/21 04/08/21 04/08/21 Range/Units 18:46 18:46 18:46 WBC 5.40 (4.8-10.8) K/uL RBC 3.49 L (4.7-6.1) M/uL Hgb 12.2 L (14.0-18.0) g/dL Hct 35.6 L (42-52) % MCV 102.0 H (80-100) fL MCH 35.0 H (25-34) pg MCHC 34.3 (32-36) g/dL RDW Std Deviation 52.0 H (36.4-46.3) fL RDW Coeff of [place] 14.0 (11.5-14.5) % Plt Count 134 (130-400) K/uL MPV 10.7 H (7.4-10.4) fL Immature Gran % (Auto) 2.0 % Neut % (Auto) 75.4 % Lymph % (Auto) 12.6 % Steele % (Auto) 6.7 % Eos % (Auto) 3.1 % Baso % (Auto) 0.2 % Neut # (Auto) 4.07 (1.4-6.5) K/uL Lymph # (Auto) 0.68 L (1.2-3.4) K/uL Steele # (Auto) 0.36 (0.11-0.59) K/uL Eos # (Auto) 0.17 (0-0.5) K/uL Baso # (Auto) 0.01 (0-0.2) K/uL Immature Gran # (Auto) 0.11 H (0.00-0.02) K/uL Absolute Nucleated RBC 0.05 H (0-0) K/uL Nucleated RBC % (auto) 1.0 % PT 10.9 (9.0-12.0) Seconds INR 1.1 (0.9-1.1) Sodium 139 (136-145) mmol/L Potassium 4.4 (3.5-5.1) mmol/L Chloride 110 H (98-107) mmol/L Carbon Dioxide 25 (21-32) mmol/L Anion Gap 4.0 (3-11) BUN 13 (7-18) mg/dl Creatinine 1.26 (0.6-1.4) mg/dl Est Cr Clr Drug Dosing 41.2 ml/min Est GFR ( Amer) 58.6 Est GFR (Non-Af Amer) 50.6 BUN/Creatinine Ratio 10.4 (10-20) Glucose 168 H (70-99) mg/dl POC Glucose (70-99) mg/dl Estimat Average Glucose mg/dl Hemoglobin A1c (4.5-5.6) % Calcium 9.0 (8.5-10.1) mg/dl Magnesium (1.8-2.4) mg/dl Specimen Hemolysis COVID-19 Eval Order SARS-CoV-2 (PCR) (Negative) Influenza Type A (PCR) (Neg) Influenza Type B (PCR) (Neg) RSV (RT-PCR) (Neg) (1) Liver malignancy Liver malignancy type: unspecified liver malignancy Qualified Code(s): C22.9 - Malignant neoplasm of liver, not specified as primary or secondary
--- NOTE | 2021-04-09 09:29 | Ultrasound Report ---
US duplex portal hepatic veins CLINICAL HISTORY: Hepatic mass. Possible portal vein thrombus. COMPARISON STUDY: CT scan dated 04/08/2021 FINDINGS: The hepatic veins are patent as visualized. The middle hepatic vein was not visualized due to mass ef fect from the patient's large hepatic mass. The portal veins are patent as visualized with normal directional flow. There is a 9.8 cm central hepatic mass. IMPRESSION: 1. 9.8 cm central hepatic mass 2. Nonvisualization of the middle hepatic veins due to compression from the patient's large hepatic m ass 3. The portal veins are patent with normal directional flow. ACT 112: Negative or not required by law. Electronically signed by: Guillermo Banerjee M.D. 04/09/2021 9:28 AM
--- NOTE | 2021-04-09 09:40 | Ultrasound Report ---
EXAMINATION: RENAL ULTRASOUND CLINICAL HISTORY: Right renal mass COMPARISON STUDY: CT scan dated 04/08/2021 FINDINGS: The right kidney measures 10.3 cm. The left kidney measures 10.6 cm. There is no evidence of hydronephrosis. The indeterminate 13 mm lesion described on the recent CT scan was not visualized ultrasonographically. There is a probable punctate right renal calculus. There is a 14 mm mid pole c ortical hypodensity which does not appear to correspond to the CT lesion. This is indeterminate. No bladder abnormalities are visualized. Bilateral ureteral jets were visualized. IMPRESSION : 1. Ultrasound fails to visualize the indeterminate right renal mass described on the recent CT scan. It can therefore not be further characterized. ACT 112: Negative or not required by law. Electronically signed by: Guillermo Banerjee M.D. 04/09/2021 9:39 AM
[2021-04-09] MEDS: ACETAMINOPHEN 325 MG TAB PO PRN ×3 (09:47→20:09)
[2021-04-09] MEDS: DIPYRIDAMOLE/ASPIRIN CAP PO SCH ×2 (09:47→21:23)
[2021-04-09] MEDS: lisinopril 5 MG TAB PO SCH (09:48)
[2021-04-09] MEDS: AMOXICILLIN/CLAVULANATE 875 MG TAB PO SCH ×2 (09:49→18:11)
[2021-04-09] MEDS: METOPROLOL TARTRATE 25 MG TAB PO SCH ×2 (09:49→21:23)
[2021-04-09] MEDS: FLUTICASONE PROPIONATE NA SPR 16 GM BTL SCH (09:49)
[2021-04-09] MEDS: PANTOprazole 40 MG TAB PO SCH (09:49)
[2021-04-09] MEDS: FLUTICASONE FUROATE 200MCG 14 PUFFS/INHALER INH SCH (09:50)
[2021-04-09] MEDS: INSULIN ASPART 100 UNITS/ML 3 ML PEN SC SCH ×4 (09:53→21:18)
--- NOTE | 2021-04-09 17:48 | Hospitalist Progress Note ---
Date of Service April 09, 2021 Assessment & Plan (1) Fall: Patient presented with worsening confusion, weakness, status post fall. CT abdomen pelvis, suggestive of liver mass/malignancy. As per GI team discussion with , does not want any invasive procedure, biopsy EDC. Continue supportive care, PT OT evaluation requested, It is a very high fall risk secondary to confusion, impulsiveness. Confusion/possible metabolic encephalopathy? Given gentle IV fluid for possible underlying dehydration. Status post fall, detailed imaging shows no evidence of fracture Continue to monitor (2) Ambulatory dysfunction: (3) Liver malignancy: Admission and Anticipated Discharge Date Admission Date: April 08, 2021 Subjective Follow-up visit for confusion/falls/ambulatory dysfunction. Patient remains confused, disoriented, talks about random things. Per nursing patient was complaining of back pain when changing position. Afebrile, no cough no shortness of breath, noted, Tolerating diet, denies of any abdominal pain Very high fall risk, attempting to get out of bed, nursing updated, bed alarm placed, Review of Systems Review of Systems: Unobtainable due to cognitive status (Confusion, ) Physical Exam Physical Exam: Physical exam: General: Chronically ill-appearing, confused HEENT: Anicteric sclera Heart: Regular S1-S2, Lungs: Clear to auscultate, no wheeze or rales Abdomen: Soft nontender, bowel sounds active Extremity: Generalized weakness, Neuro: No focal neurological deficit appreciated, unable to follow commands secondary to confusion/disorientation Psych: Awake, confused, not oriented to place person Results & Data Results & Data ([facility]) Vital Signs (Past 12 Hours) Vital Signs Temp Pulse Resp BP Pulse Ox 04/09/21 15:30 36.5 C 59 L 19 128/71 91 04/09/21 13:34 64 20 96 04/09/21 07:28 37.1 C 64 18 148/81 H 96 04/09/21 07:27 55 L 20 97 (1) Liver malignancy Liver malignancy type: unspecified liver malignancy Qualified Code(s): C22.9 - Malignant neoplasm of liver, not specified as primary or secondary (2) Fall Encounter type: initial encounter Qualified Code(s): W19.XXXA - Unspecified fall, initial encounter
[2021-04-09] MEDS: SIMVASTATIN 10 MG TAB PO SCH (21:23)
[2021-04-09] MEDS: MONTELUKAST SODIUM 10 MG TABLET PO SCH (21:23)
--- NOTE | 2021-04-09 22:11 | Electrocardiogram Report ---
Test Reason : Blood Pressure : / mmHG Vent. Rate : 066 BPM Atrial Rate : 066 BPM P-R Int : 178 ms QRS Dur : 110 ms QT Int : 404 ms P-R-T Axes : 030 -23 005 degrees QTc Int : 423 ms Normal sinus rhythm Normal ECG When compared with ECG of 11-OCT-2014 08:48, No significant change was found Confirmed by Jamie Johns ([id number]) on 04/09/2021 10:11:02 PM Referred By: REFERRED SELF Confirmed By:Jamie Johns
[2021-04-10] MEDS: ALBUTEROL HFA 8 GM INHALER INH SCH ×2 (01:02→07:30)
[2021-04-10] MEDS: LEVOTHYROXINE SODIUM 50 MCG TABLET PO SCH (05:27)
[2021-04-10] MEDS: HEPARIN SOD 5,000 UNIT/0.5 ML VIAL SQ SCH ×3 (05:27→20:24)
[2021-04-10] MEDS: DIPYRIDAMOLE/ASPIRIN CAP PO SCH ×2 (07:47→20:24)
[2021-04-10] MEDS: METOPROLOL TARTRATE 25 MG TAB PO SCH ×2 (07:47→20:25)
[2021-04-10] MEDS: PANTOprazole 40 MG TAB PO SCH (07:48)
[2021-04-10] MEDS: lisinopril 5 MG TAB PO SCH (07:49)
[2021-04-10] MEDS: AMOXICILLIN/CLAVULANATE 875 MG TAB PO SCH ×2 (07:49→18:11)
[2021-04-10] MEDS: FLUTICASONE FUROATE 200MCG 14 PUFFS/INHALER INH SCH (07:51)
[2021-04-10] MEDS: FLUTICASONE PROPIONATE NA SPR 16 GM BTL SCH (07:52)
[2021-04-10] MEDS ORDERED: FUROSEMIDE 40 MG in SYRINGE 0 ML IV ONE (08:00)
--- NOTE | 2021-04-10 08:15 | XRay Report ---
SINGLE VIEW CHEST CLINICAL HISTORY: Dyspnea. FINDINGS: An AP, portable, upright chest radiograph is compared to study dated 02/25/2018 and correlat ed with chest CT dated 09/25/2019. The examination is degraded by portable technique and patient rota tion. The heart is enlarged noting atherosclerotic calcification of the thoracic aorta. The pulmonary vasculature is noncongested. Enlargement of the central pulmonary arteries is somewhat a previous an d suggests pulmonary artery hypertension. Changes of chronic interstitial lung disease are similar to previous. Question superimposed airspace opacities in the left mid to lower lung. No large pleural e ffusion or pneumothorax is seen. The skeletal structures are osteopenic. The bony thorax is grossly i ntact. IMPRESSION: 1. Cardiomegaly with no radiographic evidence of congestive failure. 2. Changes of chronic interstitial lung disease are similar to previous. 3. Question superimposed airspace opacities in the left mid to lower lung. Correlate clinically for e vidence of a superimposed infectious/inflammatory pneumonitis. ACT 112: Negative or not required by law. Electronically signed by: Shamir Hogan M.D. 04/10/2021 8:13 AM
--- NOTE | 2021-04-10 08:36 | Hospitalist Progress Note ---
Date of Service April 10, 2021 Assessment & Plan (1) Fall: Acute Hypoxemic resp failure : requiring 4 L supplemental 02 Cxray shows progression of chronic lung fibrosis , interstitial lung disease pt received IV fluid on admission for possible dehydration ordered for IV Lasix insert stoddard resting ECHO to assess LV function Renal Mass : rt renal mass noted in CT abdomen and renal [facility] urology eval requested Confusion/possible metabolic encephalopathy? Patient presented with worsening confusion, weakness, status post fall. CT abdomen pelvis, suggestive of liver mass/malignancy. As per GI team discussion with , does not want any invasive procedure, biopsy EDC. Continue supportive care, PT OT evaluation requested, It is a very high fall risk secondary to confusion, impulsiveness. . will try to avoid narcotics /sedatives which can cause worsening of confusion /delirium ambulatory dysfunction /fall : detailed imaging shows no evidence of fracture may need rehab after discharged from hospital will update over phone (2) Ambulatory dysfunction: (3) Liver malignancy: Admission and Anticipated Discharge Date Admission Date: April 08, 2021 Subjective Follow-up visit for confusion/falls/ambulatory dysfunction. pt noted to be more hypoxic today requiring 4 L 02 , complains of SOB , orthopnea no cough remains confused , oriented to person only Review of Systems Review of Systems: Unobtainable due to cognitive status (confusion ) Physical Exam Physical Exam: Physical exam: General: Chronically ill-appearing, confused HEENT: Anicteric sclera Heart: Regular S1-S2, Lungs: coarse rales at base Abdomen: Soft nontender, bowel sounds active Extremity: Generalized weakness, Neuro: No focal neurological deficit appreciated, unable to follow commands secondary to confusion/disorientation Psych: Awake, confused,oriented to person only Results & Data Results & Data ([facility]) Vital Signs (Past 12 Hours) Vital Signs Temp Pulse Resp BP Pulse Ox 04/10/21 07:32 65 18 92 04/10/21 07:14 36.7 C 74 16 142/76 H 87 L 04/09/21 21:29 37.0 C 76 18 143/72 H 91 (1) Fall Encounter type: initial encounter Qualified Code(s): W19.XXXA - Unspecified fall, initial encounter (2) Liver malignancy Liver malignancy type: unspecified liver malignancy Qualified Code(s): C22.9 - Malignant neoplasm of liver, not specified as primary or secondary
[2021-04-10 08:49] LABS: Albumin Level 3.2 gm/dl (3.4-5.0); BUN Creatinine Ratio 13.3 (10-20); Calcium 9.1 mg/dl (8.5-10.1); Creatinine Clr Calc Pharmacy 49.7 ml/min; Est GFR (Non-African American) 63.8 ml/min
[2021-04-10 08:52] LABS: Albumin Globulin Ratio 0.9 (0.9-2); Bilirubin,Total 1.5 mg/dl (0.2-1); Globulin 3.6 gm/dl (2.5-4.0); Total Protein 6.8 gm/dl (6.4-8.2)
[2021-04-10] MEDS: INSULIN ASPART 100 UNITS/ML 3 ML PEN SC SCH ×4 (08:57→20:40)
[2021-04-10] MEDS: LACTULOSE SYRUP 20 GM/30 ML UDC PO SCH (10:31)
--- NOTE | 2021-04-10 11:11 | Communication Note ---
Date of Service: April 10, 2021 pt's updated, CT abdomen pelvis shows large liver mass suggestive of liver malignancy-known diagnosis in past, did not wanted any intervention no biopsy Right kidney mass noted during this admission scan as well Admitted with worsening of mental status/confusion, ambulatory dysfunction/fall Chest x-ray shows progression of pulmonary fibrosis, currently requiring 4 L oxygen via nasal cannula: At home was on 2 L is very tearful, will request to see patient at his bedside even for 15 minutes. she already received complete vaccination for COVID-19 Patient is not in any isolation. Offered for Zoom meeting with iPad Patient's does not have computer/iPad or smart phone which, she is not familiar with virtual meetings. Overall patient's long-term prognosis is very poor Updated patient's request to clinical coordinator. is allowed to come visit the patient for half an hour today. Tried to reach multiple times, phone line is busy, will let nursing to get communicate with patient and update regarding visitation. Dee Caballero MD
--- NOTE | 2021-04-10 14:38 | Urology Consultation ---
Date of Consultation April 10, 2021 Assessment & Plan (1) Right renal mass: 86 year old male with multiple comorbidities admitted after fall at home, liver malignancy; incidental right renal mass. - Hospital course, imaging, lab work and past medical and surgical history reviewed - Case and imaging reviewed with Dr. Taylor - CT A/P demonstrates attenuating 1.3 cm lesion of the interpolar right kidney; mass not visualized on YANNICK - Given small size, recommend repeat imaging with CT or MRI in 6 months - No acute intervention - Will plan outpatient follow-up with our service for further management Thank you for allowing us to participate in the acute care of Mr. Reich. Please reconsult us with additional questions, concerns or changes in patient status. History of Present Illness Reason for Consultation: Right renal mass Requesting Physician: Dr. Caballero Attending Physician: Dee Caballero MD History of Present Illness 86 year old male with past medical history of CAD, severe COPD, hypoxia, BPH, hypertension, CVA, hypothyroidism, and hyperlipidemia admitted after fall at home. Pt presented to [facility] ED on 04/08/21 with c/o back and hip pain after mechanical fall at home. Patient underwent imaging with CTs of the head/neck, abdomen pelvis, lumbar spine and x-rays of the right hip and wrist showing no acute fractures. Blood work was obtained which was largely unremarkable. CTAP showed possibility of hepatic malignancy, which was known prior. CTAP also noted indeterminate intermediate attenuating 1.3 cm lesion of the interpolar right kidney. He was admitted by hospital medicine. Our service is consulted for right renal mass. Chart review: Afebrile Creatinine 1.04 WBC 5.38 Hgb 11.8 Imaging: CT A/P with IV contrast IMPRESSION: 1. Heterogeneously enhancing 9.0 x 9.4 cm right hepatic lobe mass contains central cystic/necrotic spaces and causes mass effect with partial effacement of the intrahepatic IVC. This is suggestive of a primary hepatic malignancy. 2. No bowel obstruction or bowel wall thickening. 3. Colonic diverticulosis. 4. Progressively worsened fibrotic interstitial lung disease. 5. Indeterminate intermediate attenuating 1.3 cm lesion of the interpolar right kidney. 6. Nonobstructing right nephrolithiasis. 7. Additional findings as above. YANNICK IMPRESSION: 1. Ultrasound fails to visualize the indeterminate right renal mass described on the recent CT scan. It can therefore not be further characterized. Patient was seen and examined at bedside this afternoon. He appears comfortable, arouses to his name. He denies pain. History and ROS otherwise unattainable due to cognitive status. Allergies Allergy/AdvReac Type Severity Reaction Status Date / Time No Known Allergies Allergy Unverified 04/08/21 19:33 Home Medications Medication Instructions Recorded Confirmed Type albuterol sulfate 90 mcg/actuation 2 puffs INH Q6H 07/07/19 04/08/21 History aerosol inhaler insulin glargine 100 unit/mL (3 50 units SQ DAILY 07/07/19 04/08/21 History mL) subcutaneous pen levothyroxine 50 mcg capsule 50 mcg PO DAILY 07/07/19 04/08/21 History lisinopril 5 mg tablet 5 mg PO DAILY 07/07/19 04/08/21 History montelukast 10 mg tablet 10 mg PO QPM 07/07/19 04/08/21 History simvastatin 10 mg tablet 10 mg PO QPM 07/07/19 04/08/21 History nebulizer accessories #1 ea 04/30/20 11/07/20 Rx nebulizer and compressor #1 ea 04/30/20 11/07/20 Rx omeprazole 40 mg capsule,delayed 40 mg PO DAILY 04/30/20 04/08/21 History release ipratropium bromide 21 mcg (0.03 2 spray INTRANASAL BID #30 ml 11/08/20 04/08/21 Rx %) nasal spray benzonatate 100 mg capsule 100 mg PO TID PRN #30 cap 12/02/20 04/08/21 Rx guaifenesin 600 mg tablet, 600 mg PO BID #180 tab 12/05/20 04/08/21 Rx extended release 12 hr fluticasone propionate 115 2 inh INH BID #12 g 02/03/21 04/08/21 Rx mcg-salmeterol 21 mcg/actuation HFA inhaler albuterol sulfate 2.5 mg INH Q6H PRN #180 ml 02/18/21 04/08/21 Rx amoxicillin-pot clavulanate 1 tab PO BID 04/08/21 04/08/21 History [Augmentin] aspirin-dipyridamole 1 cap PO BID 04/08/21 04/08/21 History fluticasone propionate [Flonase 2 spray INTRANASAL DAILY 04/08/21 04/08/21 History Allergy Relief] metoprolol tartrate 25 mg PO BID 04/08/21 04/08/21 History Patient History Medical History BPH without urinary obstruction CAD (coronary atherosclerotic disease) COPD, severe CVA (cerebral vascular accident) PANIAGUA (dyspnea on exertion) Hypoxia Osteoporosis Wheezing Surgical History No pertinent past surgical history Family History Family/Other No pertinent family history Social History Smoking Status: Unknown if ever smoked Preferred Language: Chilean Communication Ability: Effective District Administrative Assistant Required: No Beliefs That Will Affect Care: None Feels Safe at Home: Yes Assistive Devices: Oxygen - Continuous Review of Systems Review of Systems: Unobtainable due to cognitive status Physical Exam Constitutional: cooperative and comfortable; no acute distress chronically ill-appearing Neck: normal visual inspection Respiratory: + cough; no respiratory distress and no labored breathing O2 via NC Cardiovascular: Extremities: no pedal edema Gastrointestinal (Abdomen): Inspection/Auscultation: abdomen normal to inspection; abdomen not distended Percussion/Palpation: abdomen soft; abdomen nontender and no guarding Musculoskeletal: Head/Neck/Chest: normocephalic and head atraumatic Neurologic: moves all extremities and awake Psychiatric: Orientation: alert, oriented to person and cooperative Genitourinary: no CVA tenderness Barba intact, patent, draining light baltazar red urine, no clots noted Results & Data ([facility]) Vital Signs (Past 12 Hours) Vital Signs Temp Pulse Resp BP Pulse Ox 04/10/21 07:32 65 18 92 04/10/21 07:14 36.7 C 74 16 142/76 H 87 L PG Care Time/CCT Total # of Minutes Spent Total Time Spent with Patient: Total time spent is greater than 50% in coordination of care (as documented) at patient's floor/unit and/or counseling patient: Coding Level of Care Code 97403 Inpt Consult Level 4 Diagnoses Right renal mass N28.89
[2021-04-10] MEDS: ALBUT/IPRATROP 3MG/0.5MG NEB 3 ML VIAL NEB PRN (19:39)
[2021-04-10] MEDS: MONTELUKAST SODIUM 10 MG TABLET PO SCH (20:24)
[2021-04-10] MEDS: SIMVASTATIN 10 MG TAB PO SCH (20:25)
[2021-04-11] MEDS: HEPARIN SOD 5,000 UNIT/0.5 ML VIAL SQ SCH ×3 (05:19→20:36)
[2021-04-11] MEDS: LEVOTHYROXINE SODIUM 50 MCG TABLET PO SCH (05:19)
[2021-04-11] MEDS: ALBUT/IPRATROP 3MG/0.5MG NEB 3 ML VIAL NEB PRN (07:19)
[2021-04-11 07:29] LABS: BUN Creatinine Ratio 18.6 (10-20); Calcium 8.8 mg/dl (8.5-10.1); Creatinine Clr Calc Pharmacy 42.4 ml/min; Est GFR (Non-African American) 52.6 ml/min; Potassium 3.6 mmol/L (3.5-5.1)
[2021-04-11] MEDS: INSULIN ASPART 100 UNITS/ML 3 ML PEN SC SCH ×4 (08:37→20:53)
[2021-04-11] MEDS: FLUTICASONE PROPIONATE NA SPR 16 GM BTL SCH (08:40)
[2021-04-11] MEDS: DIPYRIDAMOLE/ASPIRIN CAP PO SCH ×2 (08:40→20:36)
[2021-04-11] MEDS: FLUTICASONE FUROATE 200MCG 14 PUFFS/INHALER INH SCH (08:40)
[2021-04-11] MEDS: METOPROLOL TARTRATE 25 MG TAB PO SCH ×2 (08:41→20:37)
[2021-04-11] MEDS: lisinopril 5 MG TAB PO SCH (08:41)
[2021-04-11] MEDS: LACTULOSE SYRUP 20 GM/30 ML UDC PO SCH ×3 (08:42→20:34)
[2021-04-11] MEDS: AMOXICILLIN/CLAVULANATE 875 MG TAB PO SCH ×2 (08:42→17:32)
[2021-04-11] MEDS: PANTOprazole 40 MG TAB PO SCH (08:42)
[2021-04-11] MEDS ORDERED: FUROSEMIDE 40 MG in SYRINGE 0 ML IV ONE (16:15)
--- NOTE | 2021-04-11 17:50 | Hospitalist Progress Note ---
Date of Service April 11, 2021 Assessment & Plan (1) Fall: Acute Hypoxemic resp failure : improved , on 2 L 02 via nasal canula ( pt's baseline ) Cxray shows progression of chronic lung fibrosis , interstitial lung disease Confusion/metabolic encephalopathy/hyperammonemia, hepatic encephalopathy. Ammonia level borderline elevated 45, patient has underlying liver mass. Started on lactulose Continue to titrate dose to have 34 soft bowel movement today Renal Mass : 1.3 cm rt renal mass noted in CT abdomen/not visible in renal [facility] urology eval requested -given small size of tumor-no intervention needed repeat CT scan in 6 months Liver mass Patient presented with worsening confusion, weakness, status post fall. CT abdomen pelvis, suggestive of liver mass/malignancy-known diagnosis several years back As per GI team discussion with , does not want any invasive procedure, biopsy EDC. Continue supportive care, PT OT evaluation requested, It is a very high fall risk secondary to confusion, impulsiveness. . ambulatory dysfunction /fall : detailed imaging shows no evidence of fracture may need rehab after discharged from hospital Called patient's stepdaughter Lakeisha #[phone] on phone, left message. (2) Ambulatory dysfunction: (3) Liver malignancy: Admission and Anticipated Discharge Date Admission Date: April 08, 2021 Subjective Follow-up visit for confusion/falls/ambulatory dysfunction. more awake and alert today , complains of abdominal bloating Hypoxia has improved , on 2 L NC ( baseline ) had low urine output -ordered for IV fluid , monitor vol status no fever or chills , no cough or sob Physical Exam Physical Exam: Physical exam: General: Chronically ill-appearing, confused HEENT: Anicteric sclera/dry oral mucosa Heart: Regular S1-S2, Lungs: coarse rales at base Abdomen: Soft nontender, bowel sounds active Extremity: Generalized weakness, Neuro: No focal neurological deficit appreciated, unable to follow commands secondary to confusion/disorientation Psych: Awake, confused,oriented to person only Results & Data Results & Data ([facility]) Vital Signs (Past 12 Hours) Vital Signs Temp Pulse Pulse Resp BP Pulse Ox 04/11/21 15:00 36.4 C L 96 H 18 105/68 94 04/11/21 07:45 36.5 C 62 13 124/64 92 04/11/21 07:21 81 18 91 (1) Liver malignancy Liver malignancy type: unspecified liver malignancy Qualified Code(s): C22.9 - Malignant neoplasm of liver, not specified as primary or secondary (2) Fall Encounter type: initial encounter Qualified Code(s): W19.XXXA - Unspecified fall, initial encounter
[2021-04-11] MEDS ORDERED: SODIUM CHLORIDE 0.9% 1000ML 1,000 ML IV SCH (19:00)
[2021-04-11] MEDS: traMADol HCL 50 MG TABLET PO PRN (20:33)
[2021-04-11] MEDS: MONTELUKAST SODIUM 10 MG TABLET PO SCH (20:36)
[2021-04-11] MEDS: SIMVASTATIN 10 MG TAB PO SCH (20:37)
[2021-04-12] MEDS: ONDANSETRON INJ 2 MG/ML 2 ML VIAL IV PRN ×3 (02:01→19:22)
[2021-04-12] MEDS: LEVOTHYROXINE SODIUM 50 MCG TABLET PO SCH (05:15)
[2021-04-12] MEDS: HEPARIN SOD 5,000 UNIT/0.5 ML VIAL SQ SCH ×3 (05:15→19:37)
[2021-04-12 06:43] LABS: BUN Creatinine Ratio 25.1 (10-20); Calcium 9.9 mg/dl (8.5-10.1); Creatinine Clr Calc Pharmacy 35.4 ml/min; Est GFR (African American) 49.1 ml/min; Est GFR (Non-African American) 42.3 ml/min; Potassium 3.9 mmol/L (3.5-5.1)
[2021-04-12] MEDS: traMADol HCL 50 MG TABLET PO PRN (08:28)
[2021-04-12] MEDS: FLUTICASONE FUROATE 200MCG 14 PUFFS/INHALER INH SCH (08:31)
[2021-04-12] MEDS: FLUTICASONE PROPIONATE NA SPR 16 GM BTL SCH (08:31)
[2021-04-12] MEDS: DIPYRIDAMOLE/ASPIRIN CAP PO SCH ×2 (08:32→19:37)
[2021-04-12] MEDS: AMOXICILLIN/CLAVULANATE 875 MG TAB PO SCH ×2 (08:32→17:49)
[2021-04-12] MEDS: METOPROLOL TARTRATE 25 MG TAB PO SCH ×2 (08:32→19:38)
[2021-04-12] MEDS: lisinopril 5 MG TAB PO SCH (08:33)
[2021-04-12] MEDS: LACTULOSE SYRUP 20 GM/30 ML UDC PO SCH ×3 (08:33→19:36)
[2021-04-12] MEDS: INSULIN ASPART 100 UNITS/ML 3 ML PEN SC SCH ×4 (09:25→20:46)
[2021-04-12] MEDS: LANSOPRAZOLE 30 MG SOLTAB PO SCH (10:05)
[2021-04-12] MEDS ORDERED: SODIUM CHLORIDE 0.9% 1000ML 500 ML IV ONE (14:22)
--- NOTE | 2021-04-12 14:29 | Communication Note ---
Date of Service: April 12, 2021 Reports of poor urine output, 150 mL output in 8 hours. Bladder scan shows minimal residual urine less than 50 mL acute renal failure on CKD stage III: Creatinine elevated from baseline, secondary to poor p.o. intake, dehydration Patient also received intermittent dose of IV Lasix for pulmonary congestion. Lasix has been discontinued, has not received any dose today Hold lisinopril. Patient is ordered normal saline 250 mill bolus, followed by 100 mL/h for 1 L(total 125 0 mL in 24-hour) We will repeat labs in a.m., continue to monitor With underlying hepatic encephalopathy, borderline distended abdomen free hard to clearly assess volume status. Ordered for daily weight Strict input and output recording: Patient has indwelling Barba Avoid NSAIDs and contrast study May consider nephrology evaluation if creatinine continues to worsen after receiving IV fluids. and stepdaughter updated over phone Dee Caballero MD
[2021-04-12] MEDS ORDERED: SODIUM CHLORIDE 0.9% 1000ML 1,000 ML IV SCH (14:30)
[2021-04-12] MEDS ORDERED: SODIUM CHLORIDE 0.9% 1000ML 250 ML IV ONE (14:45)
--- NOTE | 2021-04-12 15:06 | Communication Note ---
Date of Service: April 12, 2021 Update given to patient's step daughter Lakeisha over phone Family voices concern about patient having worsening of confusion. And clinical decline. Patient possibly has underlying liver malignancy which was seen in the CAT scan of abdomen 2-3 years back. At that time patient did not wanted any surgery, no invasive treatment, Did not want to pursue liver biopsy. Given current decline in status, hepatic encephalopathy, Overall prognosis very poor. Family is willing for the palliative care consult, I discussed briefly regarding CODE STATUS, patient's daughter and brother feels that patient would not want to be resuscitated/put on life support or breathing machine, but wants her mother to make the decision. Patient's has severe anxiety disorder, having extremely hard time dealing with the stress of patient being admitted in the hospital,wants him to return home . may not be able to cope well with the discussion of end-of-life care, Lakeisha asks palliative care to discuss the goal of treatment with her first, she and her brother will communicate /prepare her mother-so that later she can actively participate in hospice care/treatment-when it is needed Family do not want patient to go to a rehab, or long-term assisted: Goal is to have patient return home with hospice when it is possible Family requests more information from palliative care, and case management regarding nursing support available for patient while on home hospice Dee Caballero MD
[2021-04-12] MEDS: SIMVASTATIN 10 MG TAB PO SCH (19:37)
[2021-04-12] MEDS: MONTELUKAST SODIUM 10 MG TABLET PO SCH (19:38)
[2021-04-13] MEDS: ONDANSETRON INJ 2 MG/ML 2 ML VIAL IV PRN ×2 (01:47→09:29)
[2021-04-13] MEDS: PROMETHAZINE HCL 12.5 MG in SODIUM CHLORIDE 0.9% 50 ML IV PRN ×2 (02:01→08:27)
[2021-04-13] MEDS: LEVOTHYROXINE SODIUM 50 MCG TABLET PO SCH (05:38)
[2021-04-13] MEDS: HEPARIN SOD 5,000 UNIT/0.5 ML VIAL SQ SCH ×2 (05:39→14:31)
[2021-04-13 05:51] LABS: BUN Creatinine Ratio 30.3 (10-20); Calcium 9.4 mg/dl (8.5-10.1); Creatinine Clr Calc Pharmacy 28.9 ml/min; Est GFR (African American) 38.4 ml/min; Est GFR (Non-African American) 33.1 ml/min
[2021-04-13] MEDS ORDERED: SODIUM CHLORIDE 0.9% 1000ML 1,000 ML IV SCH ×2 (08:45→20:45)
[2021-04-13] MEDS: INSULIN ASPART 100 UNITS/ML 3 ML PEN SC SCH (09:25)
[2021-04-13] MEDS ORDERED: MoRPHine SULFATE 2 MG/ML CARP IV STA ×2 (09:43→12:19)
[2021-04-13] MEDS ORDERED: Nursing to Pharmacy Communication SCH (09:45)
--- NOTE | 2021-04-13 09:51 | Hospitalist Progress Note ---
Date of Service April 13, 2021 Assessment & Plan (1) Fall: Nausea vomiting/abdominal distention Developed intractable abdominal pain vomiting episode this morning X-ray of KUB shows distended bowel suggestive of possible ileus versus early obstruction. Patient had a meal yesterday night with lactulose, no bowel movement this morning, multiple episodes of bilious vomiting this morning, no symptom improved with as needed IV Zofran and Phenergan dose Attempt to put NG tube in, patient could not tolerate the process, after 2 attempts NG insertion was aborted, Overall prognosis is extremely poor, family updated over the phone, and son will be here later today to visit the patient With current rapidly declining status, renal failure bowel obstruction, hepatic encephalopathy, liver malignancy.- comfort care hospice would be appropriate, will discuss with family members with goals of care Acute renal failure on CKD stage III: Patient is developing progressive oliguric renal failure: Possible hepatorenal syndrome? Urine output remains low in spite of giving fluid bolus and IV fluids, creatinine continues to elevate Poor prognosis Acute Hypoxemic resp failure : improved , on 2 L 02 via nasal canula ( pt's baseline ) Cxray shows progression of chronic lung fibrosis , interstitial lung disease Confusion/metabolic encephalopathy/hyperammonemia, hepatic encephalopathy. Has underlying large liver mass/liver malignancy Ammonia level borderline elevated 45, patient has underlying liver mass. Was given lactulose, currently is strict n.p.o. given evidence of bowel obstruction Renal Mass : 1.3 cm rt renal mass noted in CT abdomen/not visible in renal [facility] urology eval requested -given small size of tumor-no intervention needed repeat CT scan in 6 months Liver mass Patient presented with worsening confusion, weakness, status post fall. CT abdomen pelvis, suggestive of liver mass/malignancy-known diagnosis several years back As per GI team discussion with , does not want any invasive procedure, biopsy EDC. Continue supportive care, Patient clinical status continues to decline, hospice palliative care is appropriate given limited Expectancy Plan of care discussed with patient's patient's stepdaughter Lakeisha #[phone] updated over phone, in agreement for patient to transition to hospice care, but wants her mother and her brother Ariel ( primary director of managed care for parents ) CODE STATUS: Full code Have discussion with family member regarding goal of care and address CODE STATUS (2) Ambulatory dysfunction: (3) Liver malignancy: Admission and Anticipated Discharge Date Admission Date: April 08, 2021 Subjective Follow-up visit for confusion/falls/ambulatory dysfunction. pt developed intractable nausea and vomiting this morning Very confused, lethargic, urine output remains low overnight. X-ray of KUB shows dilated bowel suggesting of obstruction. Review of Systems Review of Systems: Unobtainable due to reduced consciousness (Very lethargic/confused) Physical Exam Physical Exam: Physical exam: General: Very ill-appearing, lethargic, unable to follow command, HEENT: Anicteric sclera/dry oral mucosa Heart: Regular S1-S2, Lungs: coarse rales at base Abdomen: Positive tenderness, diminished bowel sounds Extremity: Generalized weakness, Neuro: No focal neurological deficit appreciated, moving all limbs Psych: More disoriented, lethargic today Results & Data Results & Data ([facility]) Vital Signs (Past 12 Hours) Vital Signs Temp Pulse Pulse Resp BP Pulse Ox 04/13/21 07:24 36.8 C 90 16 134/76 96 04/12/21 23:00 36.4 C L 85 14 125/86 94 (1) Liver malignancy Liver malignancy type: unspecified liver malignancy Qualified Code(s): C22.9 - Malignant neoplasm of liver, not specified as primary or secondary (2) Fall Encounter type: initial encounter Qualified Code(s): W19.XXXA - Unspecified fall, initial encounter
--- NOTE | 2021-04-13 09:57 | XRay Report ---
KUB CLINICAL HISTORY: Nausea and vomiting. Evaluate for obstruction. COMPARISON STUDY: CT of the abdomen and pelvis April 08, 2021. FINDINGS: Several loops of mildly dilated small bowel are now noted, measuring 4.2 cm in caliber. The re is gas within the colon and rectum. There is mild gaseous distention of the stomach. IMPRESSION: 1. Interval development of mild small bowel gaseous distention. Given gas within the colon and rectum , the findings favor an ileus. A bowel obstruction could appear similar but is considered less likely . 2. Mild distention of the stomach. ACT 112: Negative or not required by law. Electronically signed by: Abel Ayala M.D. 04/13/2021 9:56 AM
[2021-04-13 09:58] LABS: Basophils # (auto) 0.01 K/uL (0-0.2); Basophils % (auto) 0.1 %; Eosinophils # (auto) 0.02 K/uL (0-0.5); Eosinophils % (auto) 0.2 %; Hematocrit (blood only) 38.9 % (42-52); Hemoglobin 13.5 g/dL (14.0-18.0); Immature Granulocytes # (auto) 0.05 K/uL (0.00-0.02); Immature Granulocytes % (auto) 0.5 %; Lymphocytes # (auto) 0.79 K/uL (1.2-3.4); Lymphocytes % (auto) 7.9 %; Mean Corpuscular Hemoglobin 35.4 pg (25-34); Mean Corpuscular Volume 102.1 fL (80-100); Mean Platelet Volume 11.5 fL (7.4-10.4); Monocytes # (auto) 0.71 K/uL (0.11-0.59); Monocytes % (auto) 7.1 %; Neutrophils % (auto) 84.2 %; Platelet Count 174 K/uL (130-400); RDW Coefficient of Variation 14.1 % (11.5-14.5); RDW Standard Deviation 51.6 fL (36.4-46.3); Red Blood Count 3.81 M/uL (4.7-6.1); White Blood Count 9.98 K/uL (4.8-10.8)
[2021-04-13 10:02] LABS: Mean Corpuscular Hgb Conc 34.7 g/dL (32-36)
[2021-04-13 10:08] LABS: INR 1.1 (0.9-1.1); Prothrombin Time 11.4 Seconds (9.0-12.0)
[2021-04-13] MEDS: AMOXICILLIN/CLAVULANATE 875 MG TAB PO SCH (11:03)
[2021-04-13] MEDS: FLUTICASONE PROPIONATE NA SPR 16 GM BTL SCH (11:03)
[2021-04-13] MEDS: FLUTICASONE FUROATE 200MCG 14 PUFFS/INHALER INH SCH (11:03)
[2021-04-13] MEDS: LACTULOSE SYRUP 20 GM/30 ML UDC PO SCH (11:03)
[2021-04-13] MEDS: DIPYRIDAMOLE/ASPIRIN CAP PO SCH (11:03)
[2021-04-13] MEDS: METOPROLOL TARTRATE 25 MG TAB PO SCH (11:04)
[2021-04-13] MEDS: LANSOPRAZOLE 30 MG SOLTAB PO SCH (11:04)
[2021-04-13 11:11] LABS: Albumin Level 3.5 gm/dl (3.4-5.0); Bilirubin Direct 0.4 mg/dl (0-0.2); Bilirubin,Total 1.2 mg/dl (0.2-1); Total Protein 7.6 gm/dl (6.4-8.2)
[2021-04-13] MEDS ORDERED: INSULIN ASPART 100 UNITS/ML 3 ML PEN SC SCH (12:00)
[2021-04-13] MEDS ORDERED: MoRPHine SULFATE 2 MG/ML CARP IV PRN (12:19)
--- NOTE | 2021-04-13 14:58 | Palliative Care Consultation ---
Date of Consultation April 13, 2021 Assessment & Plan (1) Palliative care encounter: This is an unfortunate 86 year old male who presented to the [facility] from home s/p witnessed fall where he landed on his eight side while using his walker, per his Tg. At baseline, per his he is not confused at home, but is a poor historian. Upon his arrival to the ED, he was complaining of right hip pain and imaging was obtained indicated a 9 x 9.4 cm right hepatic lobe lesion, which has nearly doubled in size since 2019. 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 Since admission, he has developed intractable nausea and vomiting. A KUB was obtained and results suggest distended bowel with possible ileus and early obstruction. Palliative medicine was consulted to discuss goals of care and provide symptom management. I met with Filiberto, his Tg and his son Ariel at the bedside. Mr. Reich was restless with non-purposeful movement around the bed and constant nonsensical verbage while I was there. The only thing I could understand him saying is that he wanted water. He has been NPO due to possible ileus/obstruct ion. lengthy conversations held regarding this individuals current medical progression and overall rapid declining status, renal failure, possible bowel obstruction, hepatic encephalopathy, and liver malignancy. Family has stated it is hard for them to see him like this, but do wish to have him at home. I discussed comfort care and indicated the details of hospice at home. I stressed that if we sent him home in his current state, that would not be setting up the hospice experience for success. I indicated that we should transition to comfort focused care here and work towards stability over the next day or two based on his response to medications and eventually readdress the ability for care at home. Both Tg and Ariel were receptive to this. I did call Filiberto's step-daughter Lakeisha at [phone] to discuss at length who is in full support of a comfort directed care transition. Code status was addressed with three listed above and all are in agreement for DNR/DNI. See below for all comfort focused medication changes. All non comfort medications have been discontinued, along with all blood work. Lakeisha's daughter is getting in [place] on Wednesday and she is supposed to leave on Wednesday. She asked what she should do. I said we could have a better understanding regarding life expectancy and return home on hospice based on how he responds to comfort focused medications. Ultimately, I believe he has a life expectancy of multiple days to weeks. Based on the below symptoms including intractable nausea/vomiting, uncontrolled agitation, and altered mental status with behavioral disruption which all are requiring IV medication management; this individual would be a good candidate for [facility] Hospice. [facility] level of care will allow stability and transition to more oral/sublingual administration of medications. The above recommendation was discussed with the Hospitalist and Case Management. Palliative medicine will monitor over the next 24 hours. (2) Liver malignancy: Underlying large liver and renal mass, which has doubled in size since 2019. Right renal mass 1.3 cm Liver malignancy type: unspecified liver malignancy Qualified Code(s): C22.9 - Malignant neoplasm of liver, not specified as primary or secondary (3) Nausea & vomiting: Persistent nausea. Last episode of emesis was early this morning. A KUB was performed and results indicate ileus vs obstruction. Nursing attempted NGT placement x2 without success. Pt is very agitated/restless. Transitioning to comfort measures only per family discussion with myself and hospitalist --> Should he be stabilized and less agitated, can readdress if NGT placement makes sense from a palliation standpoint based on his symptoms. Scheduled Zofran 4mg IV Q6. Did order Haldol 1 mg Q 4 PRN which can be dual use for nausea and also agitation. (4) Agitation: Pt was increasingly restless when I was visiting with him and family. 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 Discussed at length with three family members that goal is to keep someone as awake and interactive as possible, but in his situation, he may require sedation. All family members understanding of this. Stated we will see how the next 24 hours go with a goal to keep him more comfortable. Ordered scheduled Ativan 0.5 mg IV Q8. Ordered Morphine 1 mg Q2 PRN. Creatinine 1.79. Will monitor use and consider toxicity. (5) Altered mental status: Pt increasingly confused. He keeps grabbing at his bed rails and shifting side to side yelling out non-sensical verbage. Some of this can be related to encephalopathy and underlying large liver and renal mass, which has doubled in size since 2019. No intervention or biopsy done then. Recent Ammonia level is only 39, so not alarmingly elevated. History of Present Illness Reason for Consultation: Goals of Care Requesting Physician: Dr. Caballero Attending Physician: Dee Caballero MD History of Present Illness This is an unfortunate 86 year old male who presented to the [facility] from home s/p witnessed fall where he landed on his eight side while using his walker, per his Tg. At baseline, per his he is not confused at home, but is a poor historian. Upon his arrival to the ED, he was complaining of right hip pain and imaging was obtained indicated a 9 x 9.4 cm right hepatic lobe lesion, which has nearly doubled in size since 2019. 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 Since admission, he has developed intractable sara sea and vomiting. A KUB was obtained and results suggest distended bowel with possible ileus and early obstruction. Palliative medicine was consulted to discuss goals of care and provide symptom management. Please see A/P for further details. Thank you for involving palliative medicine with this unfortunate individual. Allergies Allergy/AdvReac Type Severity Reaction Status Date / Time No Known Allergies Allergy Unverified 04/08/21 19:33 Home Medications Medication Instructions Recorded Confirmed Type albuterol sulfate 90 mcg/actuation 2 puffs INH Q6H 07/07/19 04/08/21 History aerosol inhaler insulin glargine 100 unit/mL (3 50 units SQ DAILY 07/07/19 04/08/21 History mL) subcutaneous pen levothyroxine 50 mcg capsule 50 mcg PO DAILY 07/07/19 04/08/21 History lisinopril 5 mg tablet 5 mg PO DAILY 07/07/19 04/08/21 History montelukast 10 mg tablet 10 mg PO QPM 07/07/19 04/08/21 History simvastatin 10 mg tablet 10 mg PO QPM 07/07/19 04/08/21 History nebulizer accessories #1 ea 04/30/20 11/07/20 Rx nebulizer and compressor #1 ea 04/30/20 11/07/20 Rx omeprazole 40 mg capsule,delayed 40 mg PO DAILY 04/30/20 04/08/21 History release ipratropium bromide 21 mcg (0.03 2 spray INTRANASAL BID #30 ml 11/08/20 04/08/21 Rx %) nasal spray benzonatate 100 mg capsule 100 mg PO TID PRN #30 cap 12/02/20 04/08/21 Rx guaifenesin 600 mg tablet, 600 mg PO BID #180 tab 12/05/20 04/08/21 Rx extended release 12 hr fluticasone propionate 115 2 inh INH BID #12 g 02/03/21 04/08/21 Rx mcg-salmeterol 21 mcg/actuation HFA inhaler albuterol sulfate 2.5 mg INH Q6H PRN #180 ml 02/18/21 04/08/21 Rx amoxicillin-pot clavulanate 1 tab PO BID 04/08/21 04/08/21 History [Augmentin] aspirin-dipyridamole 1 cap PO BID 04/08/21 04/08/21 History fluticasone propionate [Flonase 2 spray INTRANASAL DAILY 04/08/21 04/08/21 History Allergy Relief] metoprolol tartrate 25 mg PO BID 04/08/21 04/08/21 History Patient History Medical History (Updated 04/13/21 @ 16:26 by JOB Gonzalez) Agitation Altered mental status BPH without urinary obstruction CAD (coronary atherosclerotic disease) COPD, severe CVA (cerebral vascular accident) PANIAGUA (dyspnea on exertion) Hypoxia Nausea & vomiting Osteoporosis Palliative care encounter Palliative care encounter Wheezing Surgical History No pertinent past surgical history Family History Family/Other No pertinent family history Social History Smoking Status: Unknown if ever smoked Preferred Language: Romanian Communication Ability: Effective Television Script Writer Required: No Beliefs That Will Affect Care: None Feels Safe at Home: Yes Assistive Devices: Denture - Upper and Denture - Lower Review of Systems Review of Systems: [place] System Assessment Scale: Pain: 2/3 SOB: 0/3 Anxiety: 2/3 Tiredness: 1/3 Drowsiness: 0/3 PPS: 20% Physical Exam Constitutional: + ill appearing, + frail appearing, + combative and + lethargic ENMT: Nose: + dry nasal mucous membranes Respiratory: normal respiratory effort, lungs clear to auscultation Auscultation: + diminished lung sounds and + crackles Cardiovascular: Rate/Rhythm: + tachycardic Heart Sounds: normal S1 and normal S2 Extremities: normal capillary refill; no edema Gastrointestinal (Abdomen): Inspection/Auscultation: abdomen normal to inspection Psychiatric: Orientation: + not alert, + not oriented x 3 and + uncooperative Insight: + impaired insight Judgement: + impaired judgement Results & Data ([facility]) Vital Signs (Past 12 Hours) Vital Signs Temp Pulse Pulse Pulse Resp BP Pulse Ox 04/13/21 11:23 107 H 04/13/21 10:45 36.3 C L 105 H 20 129/87 95 04/13/21 10:26 83 L 04/13/21 07:24 36.8 C 90 16 134/76 96 PG Care Time/CCT Total # of Minutes Spent Total Time Spent with Patient: Total time spent is greater than 50% in coordination of care (as documented) at patient's floor/unit and/or counseling patient: 100 minutes with > 50% of that time spent assessing the patient, discussing goals of care with family, providing symptom management, and collaborating with IDT Coding Level of Care Code 84361 Inpt Consult Level 4 Diagnoses Palliative care encounter Z51.5 Liver malignancy C22.9 Liver malignancy type: unspecified liver malignancy Nausea & vomiting R11.2 Agitation R45.1 Altered mental status R41.82 Time Spent (min) 100
[2021-04-13] MEDS ORDERED: haloperidoL 1 MG TAB PO PRN (16:00)
[2021-04-13] MEDS ORDERED: ONDANSETRON INJ 2 MG/ML 2 ML VIAL IV PRN (16:00)
[2021-04-13] MEDS ORDERED: LORazepam 0.5 MG/1 ML VIAL IV SCH (16:00)
[2021-04-13] MEDS: ONDANSETRON INJ 2 MG/ML 2 ML VIAL IV SCH ×2 (16:11→20:21)
[2021-04-13] MEDS: MoRPHine SULFATE 2 MG/ML CARP IV PRN (18:27)
[2021-04-13] MEDS: LORazepam 0.5 MG/1 ML VIAL IV SCH (20:20)
[2021-04-14] MEDS: MoRPHine SULFATE 2 MG/ML CARP IV PRN ×3 (01:03→10:02)
[2021-04-14] MEDS: LORazepam 0.5 MG/1 ML VIAL IV SCH ×2 (02:54→08:34)
[2021-04-14] MEDS: ONDANSETRON INJ 2 MG/ML 2 ML VIAL IV SCH ×3 (02:55→15:54)
[2021-04-14] MEDS: GLYCOPYRROLATE 0.2 MG/ML VIAL IV PRN ×5 (02:55→23:18)
[2021-04-14] MEDS ORDERED: MoRPHine SULFATE 2 MG/ML CARP IV STA (10:27)
[2021-04-14] MEDS ORDERED: MoRPHine SULFATE 2 MG/ML CARP IV PRN (10:28)
--- NOTE | 2021-04-14 10:40 | Palliative Care Progress Note ---
Date of Service April 14, 2021 Assessment & Plan (1) Palliative care encounter: Patient remains on comfort directed care. He continues to be overly agitated intermittently with continued altered mental status and behavioral disruption requiring medication changes. The likelihood of him returning home with hospice services is less likely than yesterday and I expect he may over the next few days. I did update one of his daughters, Lakeisha, on the phone and multiple family members will be coming to rotate in and out to see Filiberto. I did set expectation that the goal is to continue to have him awake and as interactive as possible with comfort being the focus. Unfortunately, I do think he will require sedation to achieve maximum comfort. Palliative medicine will monitor over the next 24 hours. (2) Liver malignancy: Underlying large liver and renal mass, which has doubled in size since 2019. Right renal mass 1.3 cm (3) Nausea & vomiting: Persistent nausea. Last episode of emesis was early this morning. A KUB was performed and results indicate ileus vs obstruction. Nursing attempted NGT placement x2 without success. Pt is very agitated/restless. Transitioning to comfort measures only per family discussion with myself and hospitalist --> Should he be stabilized and less agitated, can readdress if NGT placement makes sense from a palliation standpoint based on his symptoms. Scheduled Zofran 4mg IV Q6. Continue at this time. Did order Haldol 1 mg IM Q 4 PRN which can be dual use for nausea and also agitation. (4) Agitation: Pt was increasingly restless when I was visiting with him and family. 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 Discussed at length with three family members that goal is to keep someone as awake and interactive as possible, but in his situation, he may require sedation. All family members understanding of this. Stated we will see how the next 24 hours go with a goal to keep him more comfortable. Ordered scheduled Ativan 1 mg Q4. Ordered Morphine 1 mg Q3 scheduled. Creatinine 1.79. Due to possible toxicity with worsening renal function, will switch to Dilaudid. Dilaudid 1mg IV Q3 scheduled with Dilaudid 1 mg Q1 PRN. Should he require multiple doses, will policy change clerks supervisor to a Dilaudid gtt. (5) Altered mental status: Pt increasingly confused. He keeps grabbing at his bed rails and shifting side to side yelling out non-sensical verbage. Some of this can be related to encephalopathy and underlying large liver and renal mass, which has doubled in size since 2019. No intervention or biopsy done then. Recent Ammonia level is only 39, so not alarmingly elevated. Admission and Anticipated Discharge Date Admission Date: April 08, 2021 Subjective Patient continues to be increasingly confused with some combative behavior. His IV site was leaking as well, new one has been obtained. He does open his eyes, but is unable to have any meaningful conversation. See A/P for further details. Review of Systems Review of Systems: [place] System Assessment Scale: Pain: 2/3 SOB: 0/3 Anxiety: 3/3 Tiredness: 1/3 Drowsiness: 0/3 PPS: 10% Physical Exam Constitutional: + ill appearing, + frail appearing, + combative and + lethargic ENMT: Nose: + dry nasal mucous membranes Respiratory: normal respiratory effort, lungs clear to auscultation A uscultation: + diminished lung sounds and + crackles Cardiovascular: Rate/Rhythm: + tachycardic Heart Sounds: normal S1 and normal S2 Extremities: normal capillary refill; no edema Gastrointestinal (Abdomen): Inspection/Auscultation: abdomen normal to inspection Psychiatric: Orientation: + not alert, + not oriented x 3 and + uncooperative Insight: + impaired insight Judgement: + impaired judgement PG Care Time/CCT Total # of Minutes Spent Total Time Spent with Patient: Total time spent is greater than 50% in coordination of care (as documented) at patient's floor/unit and/or counseling patient: total time spent 45 minutes with > 50% of that time spent assessing the patient, discussing goals of care with family, providing symptom management and collaborating with IDT Coding Level of Care Code 44999 Subseq Hosp Care Lvl 3 Diagnoses Palliative care encounter Z51.5 Liver malignancy C22.9 Liver malignancy type: unspecified liver malignancy Nausea & vomiting R11.2 Agitation R45.1 Altered mental status R41.82 Time Spent (min) 45 (1) Liver malignancy Liver malignancy type: unspecified liver malignancy Qualified Code(s): C22.9 - Malignant neoplasm of liver, not specified as primary or secondary
[2021-04-14] MEDS ORDERED: LORazepam 1 MG/2 ML VIAL IV STA (10:50)
[2021-04-14] MEDS ORDERED: HYDROmorphone INJ 1 MG/ML SYRINGE IV PRN ×2 (10:54→11:10)
[2021-04-14] MEDS ORDERED: HYDROmorphone INJ 1 MG/ML SYRINGE IV SCH (10:59)
[2021-04-14] MEDS ORDERED: LORazepam 0.5 MG/1 ML VIAL IV SCH (12:00)
[2021-04-14] MEDS: HYDROmorphone INJ 1 MG/ML SYRINGE IV SCH ×4 (14:03→23:59)
[2021-04-14] MEDS: LORazepam 1 MG/2 ML VIAL IV SCH ×3 (15:53→23:15)
--- NOTE | 2021-04-14 19:08 | Hospitalist Progress Note ---
Date of Service April 14, 2021 Assessment & Plan (1) Palliative care encounter: pt transitioned to palliative /hospice [facility] liver malignancy with worsening of mental staus , clinical detoriation cont comfort care /end of life care appreciate input /help for palliative care team (2) Liver malignancy: (3) Nausea & vomiting: (4) Agitation: (5) Altered mental status: Admission and Anticipated Discharge Date Admission Date: April 08, 2021 Subjective Patient continues to be increasingly confused with some combative behavior. His IV site was leaking as well, new one has been obtained. He does open his eyes, but is unable to have any meaningful conversation. See A/P for further details. Physical Exam Physical Exam: Physical exam: detail exam not done for comfort care General: minimum exam for comfort care , was agitated , uncomfortable this am , received dose of IV ativan and dilaudid , more sedated , Palliative care following close;y Results & Data Results & Data ([facility]) Vital Signs (Past 12 Hours) Vital Signs Resp 04/14/21 15:00 27 H (1) Liver malignancy Liver malignancy type: unspecified liver malignancy Qualified Code(s): C22.9 - Malignant neoplasm of liver, not specified as primary or secondary
[2021-04-15] MEDS: HYDROmorphone INJ 1 MG/ML SYRINGE IV SCH (02:56)
[2021-04-15] MEDS: LORazepam 1 MG/2 ML VIAL IV SCH (02:56)
[2021-04-15] MEDS: GLYCOPYRROLATE 0.2 MG/ML VIAL IV PRN (02:58)
--- NOTE | 2021-04-15 06:33 | Death Pronouncement Note ---
Date of Service April 15, 2021 Pronouncement Note Admission Date Admission Date: April 08, 2021 Date and Time of Date of : 04/15/21 Time of : 06:00 Contributing Factors (1) Palliative care encounter: (2) Liver malignancy: (3) Nausea & vomiting: (4) Agitation: (5) Altered mental status: Additional Data Confirmation of : no pulse, no respirations, no heart sounds and pupils fixed and dilated Family: contacted Attending physician: Dee Caballero MD
--- NOTE | 2021-04-16 13:03 | Discharge Summary ---
Date of Service April 16, 2021 Admission HPI Per Admitting Provider DICTATED BY: Liu Jeff MD DATE OF ADMISSION: 04/08/2021 CHIEF COMPLAINT: Fall. HISTORY OF PRESENT ILLNESS: This is an 86-year-old male with past medical history significant for diabetes, chronic kidney disease stage III, hypothyroidism, history of COPD, history of pulmonary fibrosis, chronic sinusitis, history of CAD, history of GERD, history of BPH, history of osteoporosis, history of CVA, who lives with his , presents with fall as per the . The patient currently received fentanyl and morphine in the ER and is somewhat confused, oriented to name, but is a poor historian, could not give any history. As per the , he is not confused at home, he walks with a walker. He was in the porch and slipped and fell on the right side. In the ER, he complained of hip pain. Imaging studies were done, which showed 9 x 9.4 cm right hepatic lobe lesion, which increased from 4.3 cm from previous. As per the , the patient is otherwise doing okay. No complaints of any other pain. No cough, no fever, no chills, no nausea, no diarrhea. Normal bowel and bladder movements. Could not get a complete review of systems at this time. It looks like he was started on Augmentin recently by his ENT for chronic sinusitis on 03/24/2021 for 3 weeks course. Currently, his hemodynamics are okay. Principal Diagnosis Metastatic liver malignancy while on hospice /comfort care Discharge Exam Patient Discharge Data Allergies Allergy/AdvReac Type Severity Reaction Status Date / Time No Known Allergies Allergy Unverified 04/08/21 19:33 Consultations 04/08/21 21:58 ED Decision to Admit Stat 04/09/21 08:00 Consult Gastroenterology Routine 04/10/21 08:30 Consult Urology Routine 04/12/21 15:10 Consult Palliative Care Routine 04/13/21 15:46 Consult Palliative Care Routine Ordered Studies 04/08/21 18:56 CT abd pelvis IV con only Stat CT cervical spine wo con Stat CT head/brain wo con Stat CT lumbar spine w con Stat 04/09/21 08:30 US renal/blad retro comp Routine 04/09/21 09:00 US duplex portal hepatic veins Routine Hospital Course (1) Palliative care encounter: pt transitioned to palliative /hospice [facility] liver malignancy with worsening of mental staus , clinical detoriation cont comfort care /end of life care appreciate input /help for palliative care team (2) Liver malignancy: (3) Nausea & vomiting: (4) Agitation: (5) Altered mental status: Total Time Total Time Spent Total Time Spent (In Minutes): patient Discharge Plan Discharge Items Patient Disposition: Discharge Diagnosis: metastatic liver malignancy hepatic encephalopathy acute renal failure while on comfort care hospice Addtl Attending Provider Instructions: Patient while on comfort care
== END 2021-04-15 05:58 | disposition expired ==
LOC: ED 18:30 → 3W 23:58 → 2W 04-13 08:36